=== PATIENT | female | born 1975 | race Caucasian/White ===

== ENCOUNTER 2022-05-20 07:49 | Emergency (ER) | payer MEDICAID, SELFPAY ==
[2022-05-20 07:56] VITALS: BP 114/71; PULSE 79; RESP 17; TEMP 36.7; O2SAT 97
--- NOTE | 2022-05-20 08:11 | ED.GENADUL_ITS ---
Discharge Plan Disposition Patient Disposition: HOME Condition: Stable Discharge Details Chief Complaint: Orthopedic Clinical Impression: Right knee sprain Primary Care Provider: Tammi,Local ED Provider: Sonam Olmedo Home Meds and New Rx's Prescriptions: No Action No Known Home Meds Discharge Instructions Instructions: Knee Sprain (ED) Additional Instructions: Rest, ice, and elevate the affected area as much as possible. Take Tylenol as needed and directed for pain. Follow-up with your primary care doctor for reevaluation and with orthopedics if your symptoms do not improve or worsen. Return immediately to the emergency department if you develop any worsening or new concerning symptoms. Referrals: Rj Aden MD [ [facility] STAFF PHYSICIAN] - Discharge Data Discharge Physician: Sonam Olmedo Medical Decision Making 47-year-old female who is 28 weeks presents with right knee pain after twisting injury when fell down 2 stairs this morning. Denies any other injuries. She has reproducible pain in her right medial and posterior knee with valgus stress and flexion and extension. There is no obvious edema or deformity. She has neurovascular intact. There is no significant pain in her right hip or ankle palpation or range of motion. We will give a dose of Tylenol refer for right knee x-ray. Right knee x-ray unremarkable. Discussed with patient that her symptoms could be consistent with a right knee sprain but also consider ligament injury. A hinged knee brace was placed and she was given crutches. Patient recently moved here from [place] but has been followed by [facility] for her . She is requesting referral to women's wellness. Patient placed on care management first to establish care with OB and for follow-up with orthopedics. Usual and customary return precautions given prior to discharge. Medical Records Medical records reviewed: Yes I reviewed the patient's medical records. Imaging Data Radiologic Study: Radiologist's impression: XR KNEE RT 3V AP,LAT,LIZZETTE CLINICAL HISTORY: ? R knee pain s/p twisting, r/o acute injury. ? TECHNIQUE:? 2D digital imaging was performed. COMPARISON:? No exams were available for comparison FINDINGS: 3 views No evidence of fracture or prominent joint effusion.? Bone density is normal.? No degenerative changes in the knee joint.? No osteochondral defects.? No significant osseous lesions. IMPRESSION: No significant osseous findings.? Also no prominent joint effusion. HPI [facility] Date/Time Provider Initiated Documentation: 05/20/22 08:08 . Limitations to Documentation: no limitations . Information obtained by: patient . HPI Narrative: Patient is a 47-year-old female who is 28 weeks presents for right knee pain after fall down 2 steps this morning. Patient states that she tripped and twisted her right knee after fall down 2 steps. She did not hit her head or abdomen. She has not taken any medication for pain. She denies any direct injury to her knee but states it twisted back behind her. She is complaining of pain mostly in the right medial and posterior knee. She denies any significant pain in any other area. Related Data Home Medications Medication Instructions Recorded Confirmed Unknown [No Known Home Meds] 05/20/22 05/20/22 Allergies Allergy/AdvReac Type Severity Reaction Status Date / Time aspirin Allergy Severe Anaphylaxis Unverified 05/20/22 08:00 lamotrigine [From Lamictal] Allergy Severe Other (See Unverified 05/20/22 08:00 Comment) General Stated Complaint: Orthopedic LAKE: 4 Review of Systems All systems reviewed & are unremarkable except as noted in HPI and below Constitutional Constitutional: Reports as per HPI, Denies chills and Denies fever(s) Eyes Eyes: Denies blurry vision ENT Ears, Nose, Mouth, and Throat: Denies dizziness, Denies sore throat and Denies throat swelling Cardiovascular Cardiovascular: Denies chest pain and Denies dyspnea Respiratory Respiratory: Denies cough and Denies dyspnea Gastrointestinal Gastrointestinal: Denies abdominal pain, Denies diarrhea and Denies vomiting Genitourinary Genitourinary: Denies hematuria and Denies dysuria Musculoskeletal Musculoskeletal: Denies back pain and Denies numbness Comments: R knee pain Integumentary/Breasts Skin/Breast: Denies lesions and Denies rash Neurologic Neurologic: Denies dizziness, Denies localized weakness and Denies numbness Allergic/Immunologic Allergic/Immunologic: Denies throat swelling PFSH All Active Problems (Updated 05/20/22 @ 10:46 by Sonam Olmedo DO) Right knee sprain (Acute) Medical History (Updated 05/20/22 @ 10:46 by Sonam Olmedo DO) No significant past medical history Surgical History (Updated 05/20/22 @ 09:22 by BERNIE Duarte H/O section Social History Smoking/Tobacco Use Status: Never Smoking risk assessment performed?: Yes Alcohol Intake: never Drug use: Never Substance use type: does not use Do you feel safe at home: Yes Do you feel safe in your relationship?: Yes Exam Const General: cooperative, healthy appearing and no acute distress HENMT Head: normal to inspection Mouth: oral mucosae normal Eyes General: appearance normal, both eyes and all related structures Neck Neck: normal visual inspection Resp Effort & Inspection: normal respiratory effort and able to speak in complete sentences Cardio Rate: regular rate Skin General skin exam: no rashes or lesions noted Neuro General: patient alert, patient awake and patient oriented x3 Motor: muscle tone normal throughout Extrem Other: Pain in the right medial knee with valgus stress. There is significant pain and right medial and posterior knee with flexion/extension of the knee. There is no obvious ligamentous laxity. There is no pain with varus stress. Negative anterior and posterior drawer. Difficulty performing Jaz's test due to pain. There is no significant edema, ecchymosis or deformity. Right DP/PT pul ses intact. Able to flex at right hip without significant pain. Right ankle appears normal to inspection without edema, ecchymosis or significant tenderness to palpation or deformity. Psych Appearance: grossly normal Affect: normal affect Course Vital Signs Vital signs: Vital Signs Temperature 98.1 F 05/20/22 07:56 Pulse 79 05/20/22 07:56 Respiratory Rate 17 05/20/22 07:56 Blood Pressure 114/71 05/20/22 07:56 Pulse Oximetry 97 05/20/22 07:56 Temperature 98.1 F 05/20/22 07:56 Temperature Source Tympanic 05/20/22 07:56 Pulse 79 05/20/22 07:56 Respiratory Rate 17 05/20/22 07:56 Respiratory Effort Non-Labored 05/20/22 07:58 Blood Pressure 114/71 05/20/22 07:56 Blood Pressure Position Sitting 05/20/22 07:56 Pulse Oximetry 97 05/20/22 07:56 Oxygen Delivery Method Room Air 05/20/22 07:56 Oxygen Flow Rate 0 05/20/22 07:56 Pain Level 7 05/20/22 08:00
[2022-05-20] MEDS: Acetaminophen 325 MG TAB 650 MG PO (08:39)
--- NOTE | 2022-05-20 09:34 | DI.RAD_ITS ---
Exam(s) XR KNEE RT 3V AP,LAT,LIZZETTE EXAM: XR KNEE RT 3V AP,LAT,LIZZETTE CLINICAL HISTORY: R knee pain s/p twisting, r/o acute injury. TECHNIQUE: 2D digital imaging was performed. COMPARISON: No exams were available for comparison FINDINGS: 3 views No evidence of fracture or prominent joint effusion. Bone density is normal. No degenerative change s in the knee joint. No osteochondral defects. No significant osseous lesions. IMPRESSION: No significant osseous findings. Also no prominent joint effusion. DATA REPOSITORY: RADIATION DOSE DELIVERED:
--- NOTE | 2022-05-20 10:46 | NUR.NOTE ---
Nursing Note: PT info given to care management for follow up to establish care & [facility] Joana, ED
--- NOTE | 2022-05-21 10:36 | NUR.NOTE ---
Nursing Note: Accessed pt chart for [facility].
--- NOTE | 2022-05-22 09:09 | PDOC.ERCMACT ---
- If Service Date Differs Date of service: 05/22/22 Time of Service: 09:09 Care Management Activity Note Shandra presents in the ED for a right knee sprain. At the request of ED provider, CM coordinates a referral to Bridget Alvarado MD, of [facility], on-call provider, to assist Shandra in obtaining a follow up appointment and in establishing care with a local PCP. A referral is also made to [facility] as Shandra is . She has [place] Medicaid for insurance.
== END 2022-05-20 10:58 | disposition home or self-care (01) ==
PROVIDERS: Emergency Provider Physician Assistant
DX: S83.8X1A Sprain of other specified parts of right knee, initial encounter (principal); W10.8XXA Fall (on) (from) other stairs and steps, initial encounter; O26.893 Other specified pregnancy related conditions, third trimester; Z3A.28 28 weeks gestation of pregnancy
CPT/HCPCS: 29505; 73562; 99283

== ENCOUNTER 2022-06-11 19:16 | Outpatient (CLI) | payer MEDICAID, SELFPAY ==
[2022-06-11 20:16] VITALS: BP 121/78; PULSE 81
[2022-06-11 20:19] VITALS: BP 121/78; PULSE 81
--- NOTE | 2022-06-11 21:11 | PDOC.NST_ITS ---
Date of service: 06/11/22 Time of Service: 21:11 NST Evaluation Reason for NST Reasons for Nonstress Test: ADVANCED MATERNAL AGE Reason for NST Other: cramping and diarrhea Gestational Age Gestational Age in Weeks and Days: 30 Weeks and 6Days Test and Monitor Explained Test/Monitor Explained: Test Explained, Monitor Explained and Patient Verbalized Understanding Vital Signs Blood Pressure: 121/78 Pulse: 81 Urine Results Urine Protein: Negative (trace) Urine Ketones: Positive (large) Urine Glucose: Negative Urine Blood: Negative NST Information Date on Monitor: 06/11/22 Time on Monitor: 20:06 Date off Monitor: 06/11/22 Time off Monitor: 21:30 Total Time on Monitor: 84 NST Interventions: PO Hydration Contraction Frequency: irregular, mild, diminished with PO hydration and food Comments: urine sp. gr. 1.025 NST Evaluation Patient States Movement: Present FHR Baseline: 125 Variability: Moderate 6-25 bpm Accelerations: 15x15 and Prolonged Decelerations: None NST Results: Reactive Note NST Note Note: Cvx closed/thick, firm, posterior Cephalus presenting, ballotable Intact membranes; vaginal mucous appears white, slightly clumpy Pt given crackers & PB to address ketones and prefers water for PO hydration VPS and UC&S sent Appt in 2 days with CNM in [facility] NST Reviewed and Verified by: Sudha Fuentes
[2022-06-11 21:19] VITALS: BP 121/78; PULSE 81
== END 2022-06-11 22:28 | disposition home or self-care (01) ==
LOC: BCD 19:27 → OBS 20:05
PROVIDERS: Visit Provider Advanced Practice Midwife
DX: O09.523 Supervision of elderly multigravida, third trimester (principal); Z3A.30 30 weeks gestation of pregnancy; O26.893 Other specified pregnancy related conditions, third trimester; R19.7 Diarrhea, unspecified; R25.2 Cramp and spasm
CPT/HCPCS: 59025; 87086; 87480; 87510; 87660

== ENCOUNTER → 2022-06-15 02:33 | Outpatient (CLI) | payer MEDICAID, SELFPAY ==
--- NOTE | 2022-06-15 08:00 | DI.US_ITS ---
Exam(s) US OB PAT WEIGHT EXAM: US OB PAT WEIGHT CLINICAL HISTORY: growth, fluid, O09.30 TECHNIQUE: Ultrasound performed using standard protocol. COMPARISON: No exams were available for comparison FINDINGS: Ob ultrasound was performed utilizing 3rd trimester protocol. biometry is consistent with gestational age of 34 weeks 0 days with EDC of July 27. The e stimated weight is 2304 grams which is at the 97th percentile for predicted gestational age. Placenta is anterior with no placenta previa. There is visually a normal quantity of amniotic fluid and the PAT is 18. IMPRESSION: DATA REPOSITORY:
== END ==
PROVIDERS: PCP Family Medicine; Visit Provider Advanced Practice Midwife
DX: O09.33 Supervision of pregnancy with insufficient antenatal care, third trimester (principal); Z3A.34 34 weeks gestation of pregnancy
CPT/HCPCS: 76816

== ENCOUNTER 2022-06-23 02:50 | Outpatient (CLI) | payer MEDICAID, SELFPAY ==
[2022-06-23 12:53] LABS: Glucose,1 Hr (Glucola) 99 mg/dL (80-140)
[2022-06-23 13:56] LABS: ALT 10 U/L (14-59); AST 10 U/L (15-37); Albumin 3.1 g/dL (3.4-5.0); Alkaline Phosphatase 102 U/L (46-116); Anion Gap 9.3 mmol/L (3-11); BUN 6 mg/dL (7-18); Bilirubin, Total 0.2 mg/dL (0.2-1.0); CO2 23.7 mmol/L (21.0-32.0); CREATININE 0.5 mg/dL (0.55-1.02); Calcium 8.6 mg/dL (8.5-10.1); Chloride 103 mmol/L (98-107); Glucose 99 mg/dL (74-106); Sodium 136 mmol/L (136-145); Total Protein 6.5 g/dL (6.4-8.2)
[2022-06-24 10:27] LABS: HSV Type 1 Ab, IgG Positive (Negative); HSV Type 2 Ab, IgG Positive (Negative)
[2022-06-25 14:50] LABS: Syphilis IgG w/Reflex Nonreactive (Nonreactive)
== END 2022-06-23 02:51 | disposition home or self-care (01) ==
LOC: LBO 02:50
PROVIDERS: Advanced Practice Midwife; PCP Family Medicine; Visit Provider Advanced Practice Midwife
DX: O09.523 Supervision of elderly multigravida, third trimester (principal); Z86.19 Personal history of other infectious and parasitic diseases; F10.21 Alcohol dependence, in remission; O09.33 Supervision of pregnancy with insufficient antenatal care, third trimester
CPT/HCPCS: 36415; 80053; 82950; 86850; 86900; 86901; 86695; 86696; 86780

== ENCOUNTER 2022-06-23 15:20 | Outpatient (REF) | payer MEDICAID, SELFPAY ==
[2022-06-23 15:48] LABS: *AMPHETAMINES SCREEN URINE Negative (Negative); *BARBITURATES SCREEN URINE Negative (Negative); *BENZODIAZEPINES SCREEN URINE Negative (Negative); Cannabinoids THC Negative (Negative); Cocaine Screen,Urine Negative (Negative); METHADONE URINE SCREEN Negative (Negative); OPIATES URINE SCREEN Negative (Negative)
[2022-06-23 15:50] LABS: Tricyclic Antidepressants Negative (Negative)
[2022-07-06 14:44] LABS: Buprenorphine Negative ng/mL (Cutoff: 5.0); Norbuprenorphine Negative ng/mL (Cutoff: 2.5)
== END 2022-06-23 15:21 | disposition home or self-care (01) ==
LOC: LBN 15:20
PROVIDERS: PCP Family Medicine; Visit Provider Advanced Practice Midwife
DX: Z34.91 Encounter for supervision of normal pregnancy, unspecified, first trimester (principal)
CPT/HCPCS: 80307; 80348

== ENCOUNTER 2022-07-15 15:16 | Outpatient (CLI) | payer MEDICAID, SELFPAY ==
[2022-07-15 15:24] VITALS: BP 131/84; PULSE 80
[2022-07-15 15:38] VITALS: BP 131/84; PULSE 80; TEMP 36.6
[2022-07-15] MEDS: Lactated Ringers 1,000 ML 1000 ML IV (17:39)
[2022-07-15 18:04] LABS: Bilirubin Negative (Negative); Blood Trace-intact (Negative); Clarity Cloudy (Clear); Glucose Negative (Negative); Ketones Negative (Negative); Leukocyte Esterase Negative (Negative); Nitrite Negative (Negative); Specific Gravity 1.025 (1.005-1.025)
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
--- NOTE | 2022-07-15 18:28 | W.OBNST ---
Date of service: 07/15/22 Time of Service: 18:28 NST Evaluation Reason for NST Reasons for Nonstress Test: OTHER, SEE COMMENT Reason for NST Other: r/o labor Gestational Age Gestational Age in Weeks and Days: 35 Weeks and 5Days Test and Monitor Explained Test/Monitor Explained: Test Explained, Monitor Explained and Patient Verbalized Understanding Vital Signs Blood Pressure: 131/84 Pulse: 80 Temperature: 97.9 F NST Information Date on Monitor: 07/15/22 Time on Monitor: 15:15 Contraction Frequency: q3 at most frequent then spaced out after IVF NST Evaluation Patient States Movement: Present FHR Baseline: 135 Variability: Moderate 6-25 bpm Accelerations: 15x15 Decelerations: None NST Results: Reactive Note NST Note NST Reviewed and Verified by: Deana Reddy
[2022-07-15 18:29] VITALS: BP 131/84; PULSE 80; TEMP 36.6
== END 2022-07-15 18:45 | disposition home or self-care (01) ==
LOC: OBS 16:19 → BCD 07-18 12:51 → OBS 07-18 12:52
PROVIDERS: PCP Family Medicine; Visit Provider Obstetrics & Gynecology
DX: O47.03 False labor before 37 completed weeks of gestation, third trimester (principal); Z3A.35 35 weeks gestation of pregnancy; O34.13 Maternal care for benign tumor of corpus uteri, third trimester; O99.343 Other mental disorders complicating pregnancy, third trimester; F32.A Depression, unspecified
CPT/HCPCS: 59025; 81003; G0378

== ENCOUNTER 2022-07-22 13:28 | Outpatient (REF) | payer MEDICAID, SELFPAY | END 2022-07-22 13:29 | disposition home or self-care (01) | LOC: LBN 13:28 | PROVIDERS: PCP Family Medicine; Visit Provider Obstetrics & Gynecology Gynecology | DX: Z34.93 Encounter for supervision of normal pregnancy, unspecified, third trimester (principal) | CPT/HCPCS: 87081 ==

== ENCOUNTER 2022-07-26 07:13 | Outpatient (CLI) | payer MEDICAID, SELFPAY ==
[2022-07-26 10:49] VITALS: BP 126/74; PULSE 89; TEMP 36.6
[2022-07-26 10:52] VITALS: BP 126/74; PULSE 89
--- NOTE | 2022-07-26 12:02 | W.OBNST ---
Date of service: 07/26/22 Time of Service: 12:02 NST Evaluation Reason for NST Reasons for Nonstress Test: ADVANCED MATERNAL AGE Gestational Age Gestational Age in Weeks and Days: 37 Weeks and 2Days Test and Monitor Explained Test/Monitor Explained: Test Explained, Monitor Explained and Patient Verbalized Understanding Vital Signs Blood Pressure: 126/74 Pulse: 89 Temperature: 97.9 F NST Information Date on Monitor: 07/26/22 Time on Monitor: 10:50 Date off Monitor: 07/26/22 Time off Monitor: 11:16 Total Time on Monitor: 26 NST Interventions: PO Hydration Contraction Frequency: 8-8-mgawgrmra NST Evaluation Patient States Movement: Present FHR Baseline: 140 Variability: Moderate 6-25 bpm Accelerations: 15x15 and Prolonged Decelerations: None NST Results: Reactive Note N/A NST Note Note: Reactive, category 1 nonstress test NST Reviewed and Verified by: Sonia Lamas
[2022-07-26 12:03] VITALS: BP 126/74; PULSE 89; TEMP 36.6
== END 2022-07-26 11:24 | disposition home or self-care (01) ==
LOC: BCD 07:17 → OBS 10:48
PROVIDERS: PCP Family Medicine; Visit Provider Obstetrics & Gynecology
DX: O09.523 Supervision of elderly multigravida, third trimester (principal); Z3A.37 37 weeks gestation of pregnancy
CPT/HCPCS: 59025

== ENCOUNTER 2022-07-29 11:35 | Outpatient (CLI) | payer MEDICAID, SELFPAY ==
[2022-07-29 12:58] VITALS: BP 123/72; PULSE 80; TEMP 36.7
== END 2022-07-29 13:37 | disposition home or self-care (01) ==
LOC: BCD 11:36 → OBS 12:57
PROVIDERS: PCP Family Medicine; Visit Provider Obstetrics & Gynecology
DX: O09.523 Supervision of elderly multigravida, third trimester (principal)
CPT/HCPCS: 59025

== ENCOUNTER 2022-08-02 07:40 | Outpatient (CLI) | payer MEDICAID, SELFPAY ==
[2022-08-02 11:00] VITALS: BP 128/85; PULSE 88; TEMP 36.9
[2022-08-02 11:07] VITALS: BP 128/85; PULSE 88
[2022-08-03 16:03] VITALS: BP 128/85; PULSE 88; TEMP 36.9
--- NOTE | 2022-08-03 16:03 | W.OBNST ---
Date of service: 08/03/22 Time of Service: 11:30 NST Evaluation Reason for NST Reasons for Nonstress Test: ADVANCED MATERNAL AGE Gestational Age Gestational Age in Weeks and Days: 38 Weeks and 2Days Test and Monitor Explained Test/Monitor Explained: Test Explained, Monitor Explained and Patient Verbalized Understanding Vital Signs Blood Pressure: 128/85 Pulse: 88 Temperature: 98.4 F Urine Results Urine Protein: Negative Urine Ketones: Negative Urine Glucose: Negative Urine Blood: Negative NST Information Date on Monitor: 08/02/22 Time on Monitor: 11:04 Date off Monitor: 08/02/22 Time off Monitor: 11:40 Total Time on Monitor: 36 NST Interventions: PO Hydration Contraction Frequency: irritablity, contraction x 1 NST Evaluation Patient States Movement: Present FHR Baseline: 135 Variability: Moderate 6-25 bpm Accelerations: 15x15 Decelerations: None NST Results: Reactive Note N/A NST Note NST Reviewed and Verified by: Deana Reddy
== END 2022-08-02 11:48 | disposition home or self-care (01) ==
LOC: BCD 07:40 → OBS 10:38
PROVIDERS: PCP Family Medicine; Visit Provider Obstetrics & Gynecology
DX: O09.523 Supervision of elderly multigravida, third trimester (principal); Z3A.38 38 weeks gestation of pregnancy
CPT/HCPCS: 59025

== ENCOUNTER 2022-08-05 08:07 | Outpatient (CLI) | payer MEDICAID, SELFPAY ==
[2022-08-05 11:13] VITALS: BP 110/76; PULSE 90; TEMP 36.7
[2022-08-05 11:18] VITALS: BP 110/76; PULSE 90
--- NOTE | 2022-08-05 17:11 | W.OBNST ---
Date of service: 08/05/22 Time of Service: 11:30 NST Evaluation Reason for NST Reasons for Nonstress Test: ADVANCED MATERNAL AGE Gestational Age Gestational Age in Weeks and Days: 38 Weeks and 5Days Test and Monitor Explained Test/Monitor Explained: Test Explained, Monitor Explained and Patient Verbalized Understanding Vital Signs Blood Pressure: 110/76 Pulse: 90 Temperature: 98.1 F NST Information Date on Monitor: 08/05/22 Time on Monitor: 11:14 Date off Monitor: 08/05/22 Time off Monitor: 12:05 Total Time on Monitor: 51 NST Interventions: PO Hydration Contraction Frequency: 0 NST Evaluation Patient States Movement: Present FHR Baseline: 130 Variability: Moderate 6-25 bpm Accelerations: 15x15 Decelerations: None NST Results: Reactive Note N/A NST Note Note: See visit. CS next week. NST Reviewed and Verified by: Deana Reddy
[2022-08-05 17:12] VITALS: BP 110/76; PULSE 90; TEMP 36.7
== END 2022-08-05 12:14 | disposition home or self-care (01) ==
LOC: BCD 08:15 → OBS 10:51
PROVIDERS: PCP Family Medicine; Visit Provider Obstetrics & Gynecology
DX: O09.523 Supervision of elderly multigravida, third trimester (principal); Z3A.38 38 weeks gestation of pregnancy
CPT/HCPCS: 59025

== ENCOUNTER 2022-08-09 03:18 | Outpatient (CLI) | payer MEDICAID, SELFPAY ==
[2022-08-09 10:50] LABS: Abs Immature Grans 0.03 10^3/uL (0.0-0.06); Absolute Basophil Count 0.02 10^3/uL (0.0-0.2); Absolute Eosinophil Count 0.17 10^3/uL (0.0-0.7); Absolute Lymphocyte Count 1.58 10^3/uL (1.2-3.4); Absolute Monocyte Count 0.41 10^3/uL (0.1-0.8); Absolute Neutrophil Count 5.31 10^3/uL (1.2-6.7); Basophils % 0.3; Eosinophils % 2.3; HCT 34.2 % (36.0-46.0); HGB 11.6 g/dL (11.2-15.7); Immature Grans % 0.4; MCH 30.9 pg (27.0-33.0); MCHC 33.9 % (32.0-36.0); MCV 91 fL (80-95); MPV 9.7 fL (8.0-11.0); Monocytes % 5.5; Neutrophils % 70.5; Platelet Count 277 10^3/uL (130-400); RBC 3.76 10^6/uL (3.93-5.22); RDW 13.1 % (11.7-14.6); RDW-SD 43.5 fL; WBC 7.52 10^3/uL (4.4-10.8)
[2022-08-09 12:47] LABS: Source Nasal/Nares
[2022-08-09 13:21] LABS: COVID-19 PCR Negative (Negative)
== END 2022-08-09 03:19 | disposition home or self-care (01) ==
LOC: LBO 03:18
PROVIDERS: PCP Family Medicine; Visit Provider Obstetrics & Gynecology
DX: Z01.818 Encounter for other preprocedural examination (principal); Z20.822 Contact with and (suspected) exposure to COVID-19; O34.219 Maternal care for unspecified type scar from previous cesarean delivery; Z3A.39 39 weeks gestation of pregnancy; Z01.812 Encounter for preprocedural laboratory examination
CPT/HCPCS: 36415; 86850; 86900; 86901; 87635; 85025

== ENCOUNTER 2022-08-10 10:34 | Inpatient (IN) | payer MEDICAID, SELFPAY ==
[2022-08-10] VITALS (66 sets, daily range): BP systolic 99–126; BP diastolic 60–86; PULSE 60–96; RESP 16–65; TEMP 36.3–37.1; O2SAT 96–100; BMI 31.1
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
[2022-08-10] MEDS: AZITHROMYCIN 500 MG in Normal Saline 250 ML 250 MG IVPB (07:11)
[2022-08-10] MEDS: Lactated Ringers 1,000 ML 200 ML IV (07:15)
[2022-08-10] MEDS: Sodium Citrate 30 ML CUP PO (07:20)
[2022-08-10] MEDS: ceFAZolin 2 GM/50 ML BAG IVPB (07:51)
[2022-08-10] MEDS: Bupivacaine 0.25% Pres-Free 30 ML VIAL (08:00)
--- NOTE | 2022-08-10 08:26 | FALL_PTH ---
PATIENT: Shandra Chopra LOC: OBS U#:[id number] AGE/SX: 47/F ROOM: OBS.301 RE08/10/[address]: Sonia Lamas DO : 1975 BED: A DIS: 08/13/2022 SPEC #: [id number] RECD: 08/10/22 12:52 STATUS: DOMINIQUE REQ #: [id number] ROGER: 08/10/22 08:[address]: Sonia Lamas DEPT: Surgical Specimen RECD BY: Kenzie Tirado ENTERED: 08/10/22 12:52 SP TYPE: Fall OTHR DR: Makeda Dubois Tissues: 1 - FALLOPIAN TUBE (STERILIZATION) 2 - FALLOPIAN TUBE (STERILIZATION) Procedures: GROSS AND MICRO LEVEL 2 Comments: [id number]
[2022-08-10] MEDS: Oxytocin/Normal Saline 30 UNIT/500 ML BAG 95 UNITS IV (08:40)
--- NOTE | 2022-08-10 08:58 | W.PM.OBCSECT ---
Date of service: 08/10/22 Time of Service: 08:58 Operative Note Operative Note Delivery Method: Scheduled and Repeat Previous LT Incision: Yes DATE OF PROCEDURE: 08/10/22 PRE-OP DIAGNOSES: at 39-3/7 weeks gestation, undesired fertility POST-OP DIAGNOSES: same PROCEDURE: Repeat low-transverse section with bilateral salpingectomy SURGEON: Sonia Lamas Assisting Surgeon: Shante Kaur Anesthesia: local and spinal Estimated blood loss (mL): 500 Pathology: other (1. Left fallopian tube 2. Right fallopian tube) Complications: None Patient was transported to: floor Patient's condition: stable Indications: Prior section x2, term intrauterine , undesired fertility Findings: Bulky enlarged uterus with posterior uterine fibroid. Moderate adhesions of the bladder to the lower uterine segment. Normal-appearing fallopian tubes and ovaries Procedure Description: After full informed consent was obtained, patient was taken the operating suite with an IV running. She is placed in the seated position and spinal anesthesia administered for postoperative pain control. She was then placed in the modified dorsolithotomy position with leftward tilt and prepped and draped in the usual sterile fashion including vaginal preparation. She received Ancef and Zithromax for surgical site infection prophylaxis. She had pneumatic compression stockings for DVT prophylaxis. She had a Montes catheter for continuous bladder drainage. Pfannenstiel skin incision was made through her previous surgical incision and carried down to the underlying fascia which was nicked in the midline. The fascial incision was extended laterally. The rectus muscles had a diastases and the peritoneal cavity was entered with meticulous sharp dissection. The vesicouterine peritoneum was identified and meticulously dissected away from the lower uterine segment and bladder blade was inserted. A low transverse uterine incision was made with a scalpel and extended bluntly laterally. There was artificial rupture of membranes for clear fluid at the vertex was delivered without trauma. There was a nuchal cord x1 which was loose and delivered through. Shoulders followed with ease. Three-vessel cord was noted clamped x2 and cut and the was handed off to the waiting oil exploration engineer. At this point cord blood sample was obtained and placenta was manually expressed from the uterus. The uterus was then exteriorized and cleared of all clot and debris. The uterine incision was closed using 0 Monocryl suture in a 2 layer fashion with the first being running locked and second being imbricating. Uterine incision was noted to be hemostatic. At this point attention was turned to the left fallopian tube which was cautery transected and removed and a similar procedure was carried out then on the right fallopian tube. The pedicles were noted to be hemostatic and the uterus was returned to the abdomen. Abdomen was then irrigated with copious months of normal saline all pedicles and incision was then reinspected and found to be hemostatic. The fascial incision was closed using 0 Vicryl suture in a running fashion. Subcutaneous tissue irrigated with copious months of normal saline and reapproximated with 3-0 Vicryl in a simple interrupted fashion. The incision was then closed using 4-0 undyed Monocryl in a subcuticular fashion. Steri-Strips and sterile dressing were placed. Patient was taken to the center in stable condition with a Montes catheter draining clear yellow urine in the uterus that was firm, 2 cm below the umbilicus. Complications: None apparent EBL: 500 mL Fluids: Crystalloid per anesthesia Pathology: 1. Left fallopian tube 2. Right fallopian tube.
[2022-08-10] MEDS: Ketorolac 30 MG/ML VIAL IVP ×2 (14:05→20:09)
[2022-08-10] MEDS: Normal Saline Flush 10 ML SYR IVP ×2 (14:06→20:12)
[2022-08-10] MEDS: Acetaminophen 325 MG TAB 650 MG PO (16:43)
--- NOTE | 2022-08-10 17:40 | W.ANESPOSTOP ---
Postoperative Evaluation Date, Time and Location Date Performed: 08/10/22 Time Performed: 17:40 Patient Location: Obstetrics Vital Signs Most Recent Imported Vital Signs: Most Recent Vital Signs Temp Pulse Resp BP Pulse Ox 36.7 C 71 16 106/62 96 08/10/22 16:30 08/10/22 16:36 08/10/22 16:30 08/10/22 16:36 08/10/22 16:35 Pain Score Most Recent Pain Score: Most Recent Pain Score Pain Level 5 08/10/22 16:43 Assessment Mental Status: Awake (Alert & Oriented to Patient Baseline) Airway and Respiratory Function: Patent airway with normal (patient baseline) respiratory exam Cardiovascular Function: Hemodynamically Stable Hydration Status: Adequately Hydrated Nausea & Vomiting: No Nausea or Vomiting Pain: Pain is tolerable per patient Peripheral Nerve Block: Patient did not receive a nerve block (Spinal wearing off appropriately, some numbness remains in bottom)
[2022-08-11] MEDS: Acetaminophen 325 MG TAB 650 MG PO ×4 (00:06→20:01)
[2022-08-11 02:46] VITALS: BP 99/56; PULSE 61
[2022-08-11 02:57] VITALS: BP 93/68; PULSE 67; RESP 16; TEMP 36.4; O2SAT 97
[2022-08-11] MEDS: Ketorolac 30 MG/ML VIAL IVP ×2 (05:57→12:19)
[2022-08-11] MEDS: Normal Saline Flush 10 ML SYR IVP ×2 (05:58→12:20)
[2022-08-11 06:31] LABS: Abs Immature Grans 0.05 10^3/uL (0.0-0.06); Absolute Basophil Count 0.02 10^3/uL (0.0-0.2); Absolute Eosinophil Count 0.14 10^3/uL (0.0-0.7); Absolute Lymphocyte Count 2.44 10^3/uL (1.2-3.4); Absolute Monocyte Count 0.55 10^3/uL (0.1-0.8); Basophils % 0.2; Eosinophils % 1.3; HCT 31.2 % (36.0-46.0); HGB 10.5 g/dL (11.2-15.7); Immature Grans % 0.5; Lymphocytes % 22.1; MCHC 33.7 % (32.0-36.0); MCV 92 fL (80-95); MPV 9.9 fL (8.0-11.0); Neutrophils % 70.9; Platelet Count 253 10^3/uL (130-400); RBC 3.39 10^6/uL (3.93-5.22); RDW-SD 43.3 fL; WBC 11.04 10^3/uL (4.4-10.8)
[2022-08-11 06:34] LABS: Absolute Neutrophil Count 7.83 10^3/uL (1.2-6.7)
[2022-08-11 07:40] VITALS: BP 113/75; PULSE 75; RESP 14; TEMP 36.9; O2SAT 96
--- NOTE | 2022-08-11 08:18 | W.PM.OBPNV1 ---
Date of service: 08/11/22 Time of Service: 08:18 Assessment and Plan Assessment and plan (1) Status post repeat low transverse section: Status: Acute Assessment and plan: Postoperative day 1 status post repeat low transverse section with bilateral salpingectomy. Doing well. Slight headache this morning. Medications ordered. Continue routine postoperative care. Anticipate discharge home tomorrow. Subjective Subjective Interval history: Patient seen and examined this morning. Doing well. Has a slight headache which per her request has responded nicely to Flexeril in the past. 1 was ordered for the morning. She will have her Montes catheter out this morning. All of her questions were answered. Exam Physical Exam Vital signs: Temp Pulse Resp BP Pulse Ox 97.6 F 67 16 93/68 L 97 08/11/22 02:57 08/11/22 02:57 08/11/22 02:57 08/11/22 02:57 08/11/22 02:57 Vital Signs Reviewed: Yes Constitutional Constitutional: no acute distress HEENT Exam HEENT Exam: Normal Neck Exam Neck Exam: Normal Respiratory Exam Respiratory Exam: Normal Cardiovascular Exam Cardiovascular Exam: Normal Fundal Exam Fundus: Below Umbilicus and Firm Extremities Exam Extremity Exam: negative Calf Tenderness, Edema or Redness Psychiatric Exam Psychiatric Exam: Normal Results Hemoglobin/Hematocrit: Hgb 10.5 g/dL (11.2-15.7) L 08/11/22 06:21 Hct 31.2 % (36.0-46.0) L 08/11/22 06:21 Abnormal Lab Findings: Abnormal Labs 08/11/22 06:21 WBC 11.04 H RBC 3.39 L Hgb 10.5 L Hct 31.2 L Absolute Neutrophils 7.83 H
[2022-08-11] MEDS: Cyclobenzaprine 10 MG TAB PO ×2 (09:19→21:39)
[2022-08-11 12:30] VITALS: BP 112/62; PULSE 59; RESP 12; TEMP 36.9; O2SAT 96
[2022-08-11 15:50] VITALS: BP 110/78; PULSE 76; RESP 16; TEMP 36.4; O2SAT 99
[2022-08-11] MEDS: Ibuprofen 600 MG TAB PO (18:47)
[2022-08-11 19:00] VITALS: BP 119/75; PULSE 70; TEMP 36.4; O2SAT 95
[2022-08-12] MEDS: oxyCODONE 5 mg/Acetaminophen 325 mg TAB PO ×3 (00:52→08:20)
[2022-08-12] MEDS: Ibuprofen 600 MG TAB PO ×4 (00:53→18:38)
[2022-08-12 01:00] VITALS: BP 127/76; PULSE 85; TEMP 36.4
[2022-08-12] MEDS: Acetaminophen 325 MG TAB 650 MG PO ×4 (04:39→23:33)
[2022-08-12 04:54] VITALS: BP 126/75; PULSE 60; TEMP 36.4
[2022-08-12 07:15] VITALS: BP 116/75; PULSE 69; RESP 14; TEMP 36.6; O2SAT 96
--- NOTE | 2022-08-12 08:05 | OBPPV_ITS ---
Date of service: 08/12/22 Time of Service: 08:05 Assessment and Plan Assessment and plan (1) Status post repeat low transverse section: Status: Acute (2) H/O bilateral salpingectomy: Status: Acute Assessment and plan: Postop day 2. Breast-feeding well. Patient's pain is still not yet controlled. The plan at this time is to continue [id number] ibuprofen with 1-2 Percocet every 6 hours. We will reassess for discharge to home later today. Subjective Subjective Interval history: Postop day 2 from repeat low-transverse delivery with bilateral tubal sterilization. Breast-feeding successfully. Patient comments: Incisional pain, Tolerating diet, Flatus present and Other (Reports generalized pain not relieved with hydrocodone or Percocet dose during the night) Patient's Mood: Satisfactory. Patient does not feel that she is ready to go home this morning [place] baby status: Doing well, Nursing well, Rooming in and Strong Bonding Observed [place] feeding status: Exclusively breast feeding Narrative: Patient reports generalized abdominal pain with movement. Exam Physical Exam Vital signs: Temp Pulse Resp BP Pulse Ox 97.9 F 69 14 116/75 96 08/12/22 07:15 08/12/22 07:15 08/12/22 07:15 08/12/22 07:15 08/12/22 07:15 Vital Signs Reviewed: Yes Narrative: Stable. Voiding spontaneously Constitutional Constitutional: mild distress HEENT Exam HEENT Exam: Normal Neck Exam Neck Exam: Normal Respiratory Exam Respiratory Exam: Normal Cardiovascular Exam Cardiovascular Exam: Normal Abdominal Exam Abdomen: Diastasis and Tender Fundal Exam Fundus: Below Umbilicus Rectal Exam Rectal Exam: Not Done Extremities Exam Extremity Exam: Normal Back/Spine/Pelvis Exam Back Exam: Normal Skin Exam Skin Exam: Normal Neurological Exam Neurological Exam: Normal Psychiatric Exam Psychiatric Exam: Normal Results Hemoglobin/Hematocrit: Hgb 10.5 g/dL (11.2-15.7) L 08/11/22 06:21 Hct 31.2 % (36.0-46.0) L 08/11/22 06:21 Abnormal Lab Findings: Abnormal Labs 08/11/22 06:21 WBC 11.04 H RBC 3.39 L Hgb 10.5 L Hct 31.2 L Absolute Neutrophils 7.83 H
[2022-08-12 12:35] VITALS: BP 111/70; PULSE 69; RESP 12; TEMP 36.7
[2022-08-12] MEDS: oxyCODONE 5 MG TAB PO ×3 (12:38→23:37)
[2022-08-12] MEDS: Docusate Sodium 100 MG CAP PO (13:55)
[2022-08-12] MEDS: HYDROmorphone 2 MG TAB PO (15:21)
[2022-08-12 16:05] VITALS: BP 122/75; PULSE 71; RESP 16; TEMP 36.4
[2022-08-12 23:00] VITALS: BP 111/72; PULSE 90; RESP 18; TEMP 36.6
[2022-08-13] MEDS: Ibuprofen 600 MG TAB PO ×2 (00:53→10:42)
[2022-08-13] MEDS: HYDROmorphone 2 MG TAB PO (00:53)
[2022-08-13 02:05] VITALS: BP 140/100; PULSE 74; RESP 24
--- NOTE | 2022-08-13 02:17 | OBPPV_ITS ---
Date of service: 08/13/22 Time of Service: 02:17 Assessment and Plan Assessment and plan (1) Postoperative pain: Status: Acute Assessment and plan: Approximately 48 hours after her repeat delivery she developed pain in the distribution area of the left genitofemoral nerve in proximity to her Pfannenstiel skin incision. Successful nerve block was performed. We will continue to observe the patient's pain status. Subjective Subjective Interval history: Beginning later on the day and postop to patient experienced significant left greater than right lower quadrant pain in proximity to the lateral margins of her Pfannenstiel skin incision. The pain was described as sharp radiating down to her pubic symphysis and into the inguinal region. She was experiencing difficulty walking and position changes were almost impossible secondary to her discomfort. She experienced little relief from narcotics or NSAIDs. I was notified by the nursing staff that her pain had exacerbated approximately 1:00 in the morning on 08/13/2022. Patient comments: Incisional pain (Left lateral a Pfannenstiel skin incision tender to touch) and Flatus present Patient's Mood: Increasingly anxious regarding worsening pain. baby status: Doing well, Nursing well, Rooming in and Strong Bonding Observed feeding status: Exclusively breast feeding Exam Physical Exam Vital signs: Temp Pulse Resp BP Pulse Ox 98 F 90 18 111/72 96 08/12/22 23:00 08/12/22 23:00 08/12/22 23:00 08/12/22 23:00 08/12/22 07:15 Vital Signs Reviewed: Yes Narrative: Blood pressure immediately after the injection diastolic was in the 100 range. Pulse 74. Repeat blood pressure 15 minutes later 120/84 pulse 74. Constitutional Constitutional: severe distress (Patient sitting in Semi-Avalos's position in bed eyes closed unable to comfortably reposition herself) and cooperative HEENT Exam HEENT Exam: Normal Neck Exam Neck Exam: Normal Respiratory Exam Respiratory Exam: Normal Cardiovascular Exam Cardiovascular Exam: Normal Abdominal Exam Abdomen: Tender (Left lower quadrant 3 cm lateral to the margin of the Pfannenstiel skin incision) Comments: Pfannenstiel skin incision is intact without drainage small amount of ecchymosis present along the superior and inferior incision margins. Fundal Exam Fundus: Below Umbilicus Rectal Exam Rectal Exam: Not Done Extremities Exam Extremity Exam: Normal Back/Spine/Pelvis Exam Back Exam: Normal Skin Exam Skin Exam: Normal Neurological Exam Neurological Exam: Normal Psychiatric Exam Psychiatric Exam: Normal Results Hemoglobin/Hematocrit: Hgb 10.5 g/dL (11.2-15.7) L 08/11/22 06:21 Hct 31.2 % (36.0-46.0) L 08/11/22 06:21 Abnormal Lab Findings: Abnormal Labs 08/11/22 06:21 WBC 11.04 H RBC 3.39 L Hgb 10.5 L Hct 31.2 L Absolute Neutrophils 7.83 H Procedure Procedures: Other Procedure Note Date of procedure: 08/13/22 Procedure: Nerve block of the left general femoral nerve in proximity to Fenistil skin Surgeon/Proceduralist/Physician: Shante Kaur Procedure Diagnosis: Genitofemoral nerve pain Procedure Indications: Patient is postop day 3 from a repeat delivery who developed left lower quadrant pain in proximity to her left lateral margin of first Pfannenstiel skin incision. The area of distribution of her pain was in keeping with the general femoral nerve. There is no relief from narcotics or nonsteroidal anti- inflammatories Procedure Description: After verbal consent was obtained the patient was placed in the dorsal supine position and site of most focal pain in the general distribution of the left genitofemoral nerve was located approximately 4 cm lateral to the left margin of the Pfannenstiel skin incision. A solution of 10 cc of quarter percent Marcaine without epinephrine and a total of 40 mg of Kenalog were mixed together in a syringe and a 22-gauge needle was then injected in a subcutaneous fashion to 2.2 identified pain and in a circumferential or fashion the solution was distributed and 5 cm radius. Patient tolerated the procedure well at the completion of the procedure she reported that the area of injection felt numb but she was not experiencing any further pain.
[2022-08-13 02:30] VITALS: BP 124/83; PULSE 74; RESP 18
[2022-08-13] MEDS: Acetaminophen 325 MG TAB 650 MG PO (06:34)
[2022-08-13] MEDS: oxyCODONE 5 MG TAB PO ×2 (06:35→10:42)
[2022-08-13] MEDS: Docusate Sodium 100 MG CAP PO (07:13)
[2022-08-13 07:34] VITALS: BP 129/88; PULSE 76; RESP 18; TEMP 36.7; O2SAT 98
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
[2022-08-13 10:49] VITALS: BP 123/88; PULSE 82; RESP 18; TEMP 36.5; O2SAT 98
== END 2022-08-13 11:45 | disposition home or self-care (01) | DRG 784 ==
PROVIDERS: Obstetrics & Gynecology Gynecology; Admitting Provider Obstetrics & Gynecology; PCP Family Medicine; Visit Provider Obstetrics & Gynecology
PROC: 10D00Z1 Extraction of Products of Conception, Low, Open Approach (ICD-10-PCS; CPT 59514; principal; 2022-08-10 07:30)
DX: O34.211 Maternal care for low transverse scar from previous cesarean delivery (principal); O99.354 Diseases of the nervous system complicating childbirth; Z37.0 Single live birth; Z3A.39 39 weeks gestation of pregnancy; G89.18 Other acute postprocedural pain; G58.8 Other specified mononeuropathies; O34.13 Maternal care for benign tumor of corpus uteri, third trimester; D25.9 Leiomyoma of uterus, unspecified; O99.344 Other mental disorders complicating childbirth; F32.A Depression, unspecified; O99.314 Alcohol use complicating childbirth; F10.21 Alcohol dependence, in remission; O99.284 Endocrine, nutritional and metabolic diseases complicating childbirth; E07.89 Other specified disorders of thyroid; Z30.2 Encounter for sterilization; G43.109 Migraine with aura, not intractable, without status migrainosus
CPT/HCPCS: 59514; 58700; 64450; 36415; 85025; 88302; J0131; J0456; J0690; J1100; J1885; J2370; J2405; J3010

== ENCOUNTER 2022-08-13 20:48 | Emergency (ER) | payer MEDICAID, SELFPAY ==
[2022-08-13 20:54] VITALS: BP 134/83; PULSE 70; RESP 18; TEMP 36.6; O2SAT 98
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
[2022-08-13 21:49] LABS: Lactate 1.3 mmol/L (0.6-1.4)
[2022-08-13 21:50] LABS: Abs Immature Grans 0.02 10^3/uL (0.0-0.06); Absolute Basophil Count 0.02 10^3/uL (0.0-0.2); Absolute Eosinophil Count 0.15 10^3/uL (0.0-0.7); Absolute Lymphocyte Count 1.29 10^3/uL (1.2-3.4); Absolute Monocyte Count 0.29 10^3/uL (0.1-0.8); Absolute Neutrophil Count 4.46 10^3/uL (1.2-6.7); Basophils % 0.3; Eosinophils % 2.4; HCT 31.6 % (36.0-46.0); HGB 10.5 g/dL (11.2-15.7); Immature Grans % 0.3; Lymphocytes % 20.7; MCH 30.6 pg (27.0-33.0); MCHC 33.2 % (32.0-36.0); MCV 92 fL (80-95); MPV 9.6 fL (8.0-11.0); Monocytes % 4.7; Neutrophils % 71.6; Platelet Count 307 10^3/uL (130-400); RBC 3.43 10^6/uL (3.93-5.22); RDW-SD 43.7 fL; WBC 6.23 10^3/uL (4.4-10.8)
[2022-08-13] MEDS: Normal Saline 1,000 ML 1000 ML IV (21:56)
[2022-08-13] MEDS: MORPHine 4 MG/ML SYR IVP (21:57)
[2022-08-13 22:04] LABS: ALT 13 U/L (14-59); AST 15 U/L (15-37); Albumin 2.6 g/dL (3.4-5.0); Alkaline Phosphatase 108 U/L (46-116); BUN 7 mg/dL (7-18); Bilirubin, Total 0.2 mg/dL (0.2-1.0); CREATININE 0.5 mg/dL (0.55-1.02); Chloride 108 mmol/L (98-107); Glucose 91 mg/dL (74-106); Potassium 3.5 mmol/L (3.5-5.1); Sodium 140 mmol/L (136-145); Total Protein 5.8 g/dL (6.4-8.2)
--- NOTE | 2022-08-13 22:30 | DI.CT_ITS ---
Exam(s) CT ABDOMEN PELVIS W EXAM: CT ABDOMEN PELVIS W CLINICAL HISTORY: left lower quad/groin pain TECHNIQUE: Imaging Protocol: Axial computed tomography images with coronal and sagittal reformatted images were created and reviewed CONTRAST MATERIAL: Intravenous: Omnipaque 350 Contrast volume:100 mL Oral: No COMPARISON: No exams were available for comparison FINDINGS: ABDOMEN: Lung Bases: Normal where visualized. Liver: Normal density. No measurable mass. There are few tiny hypodensities seen within the liver. T hey are too small for further characterization but likely reflect small cysts. Portal, Superior Mesenteric, and Splenic Veins: Unremarkable. Gallbladder and Biliary Tract: No radiodense calculus or dilation. Pancreas: Normal density, no abnormal calcifications or inflammatory process. Spleen: Normal. Adrenals: No masses seen. Kidneys: Normal size, contour and axis. There is a 2 mm nonobstructing stone in the midpole of the le ft kidney. There is an 8 mm cyst in the left kidney. No follow-up is recommended. Abdominal Aorta: Abdominal portion non-dilated. Atherosclerosis is present. Bowel: No obstruction or bowel wall thickening. No evidence of appendicitis. Peritoneal Cavity: No ascites, collection or mesenteric inflammatory response. No free air. Lymph Nodes: Within normal limits. Bones: Within normal limits for the patient's age. Soft Tissues: There is subcutaneous air seen in the soft tissues just above the left inguinal region. There is a small gas bubble demonstrated in the lower right pelvic wall. There is mild stranding i n the subcutaneous fat in the lower anterior abdominal wall. PELVIS: Bladder: Symmetric distention, no gross wall thickening. Reproductive Organs: The uterus is markedly enlarged and heterogeneous. There is at least 1 discrete hypo dense mass in the posterior fundal region measuring 2.3 x 3.1 cm suggestive of fibroid. Lymph Nodes: Within normal limits. Bones: Within normal limits for the patient's age. IMPRESSION: 1. Enlarged uterus with stranding in the infrapubic subcutaneous fat and small foci of gas in the ant erior abdominal wall. The findings are consistent with the uterus status post se ction. No focal fluid collection is seen to suggest an abscess. 2. Uterine fibroid. 3. No other acute abdominal or pelvic process. RADIATION DOSE DELIVERED: 1,203.62mGy.cm Total DLP DATA REPOSITORY: All CT scans at this facility are submitted to the National Radiology Data Registry (NRDR) Dose Index Registry (DIR) with the [employer] (ACR). RADIATION OPTIMIZATION: All CT scans at this facility use at least one of these dose optimization te chniques: automated exposure control; mA and/or kV adjustment per patient size (includes targeted exa ms where dose is matched to clinical indication); or iterative reconstruction.
[2022-08-13] MEDS: Omnipaque 350 MG/ML 100 ML BTL IJ (22:59)
[2022-08-13] MEDS: Normal Saline - Diluent 50 ML VIAL IJ (22:59)
--- NOTE | 2022-08-13 23:41 | DI.VRAD_ITS ---
PROCEDURE INFORMATION: Exam: CT Abdomen And Pelvis With Contrast Exam date and time: 08/13/2022 10:46 PM Age: 47 years old Clinical indication: Other: Left lower quad/ groin pain; Prior surgery; Surgery date: 3-7 days post-operative TECHNIQUE: Imaging protocol: Computed tomography of the abdomen and pelvis with contrast. Contrast material: 350; Contrast volume: 100 ml; Contrast route: INTRAVENOUS (IV); COMPARISON: US OB PAT WEIGHT 06/15/2022 10:14 AM FINDINGS: Liver: There is diffuse decrease in hepatic parenchymal density, consistent with mild fatty infiltration. No mass Gallbladder and bile ducts: Normal. No calcified stones. No ductal dilation. Pancreas: Normal. No ductal dilation. Spleen: Normal. No splenomegaly. Adrenal glands: Normal. No mass. Kidneys and ureters: 1 cm simple cyst in lower pole of left kidney. 2-3 mm radiopaque calculus in interpolar left kidney. No radiopaque ureteric or right renal calculi. No hydronephrosis. Stomach and bowel: Unremarkable. No obstruction. No mucosal thickening. Appendix: No evidence of appendicitis. Intraperitoneal space: No free intraperitoneal gas or ascites. Vasculature: Unremarkable. No abdominal aortic aneurysm. Lymph nodes: Unremarkable. No enlarged lymph nodes. Urinary bladder: Urinary bladder is distended without wall thickening or intraluminal radiopaque calculus identified. Reproductive: Enlarged uterus measures just under 20 cm longitudinally. Hypoenhancing lesion is demonstrated in posterosuperior right fundal region, measuring 4.5 cm. section defect noted anteriorly in lower uterine segment. Bones/joints: Unremarkable. No acute fracture. Soft tissues: Gas bubble is demonstrated in lower right pelvic wall and gas bubbles are demonstrated anteriorly about left lower pelvic wall. There is stranding of subcutaneous fat in infrapubic area. IMPRESSION: 1. Enlarged uterus, status post section. 2. Lesion in fundus of the uterus most consistent with a fibroid. 3. Postoperative changes. 4. Distended urinary bladder. 5. Minute left renal calculus. Dictated and Authenticated by: Eleazar Lara MD. Ordering:GILBERTO Salazar MD
[2022-08-14 00:20] VITALS: BP 132/85; PULSE 67; RESP 16; TEMP 36.5; O2SAT 98
== END 2022-08-14 00:33 | disposition home or self-care (01) ==
PROVIDERS: Emergency Provider Student in an Organized Health Care Education/Training Program; PCP Family Medicine
DX: R10.32 Left lower quadrant pain (principal)
CPT/HCPCS: 36415; 80053; 96361; 96374; 96375; 99285; 74177; 83605; 85025; J2270; J3490

== ENCOUNTER 2022-10-03 18:06 | Emergency (ER) | payer MEDICAID, SELFPAY ==
[2022-10-03] VITALS (18 sets, daily range): BP systolic 114–151; BP diastolic 80–92; PULSE 55–91; RESP 9–21; TEMP 36.6–36.9; O2SAT 96–98
--- NOTE | 2022-10-03 18:30 | DI.CT_ITS ---
Exam(s) CT RENAL COLIC WO EXAM: CT RENAL COLIC WO CLINICAL HISTORY: left flank pain. TECHNIQUE: Imaging Protocol: Axial computed tomography images with coronal and sagittal reformatted images were created and reviewed. COMPARISON: CT CT ABDOMEN PELVIS W from 08/13/2022 FINDINGS: ABDOMEN: Lung Bases: Normal where visualized. Liver: Normal density. No measurable mass. Gallbladder and biliary tract: No radiodense calculus or biliary ductal dilation. Pancreas: Normal density, no abnormal calcifications or inflammatory process. Spleen: Normal. Kidneys: Normal size, contour and axis.There is a 4 mm stone at the left UVJ causing mild hydronephro sis. No masses seen. Adrenal glands: No mass is seen. Lymph nodes: Within normal limits. Abdominal Aorta: Abdominal portion non-dilated. Minimal atherosclerosis. PELVIS: Bladder:The urinary bladder is incompletely distended limiting evaluation. Bowel: No obstruction or bowel wall thickening. There is no evidence of ascites. Peritoneal cavity: No ascites, collection or mesenteric inflammatory response. No free air. Reproductive organs: Unremarkable as visualized. Bones: Within normal limits. Soft Tissues: Within normal limits. IMPRESSION: 4 mm stone at the left UVJ causing mild hydronephrosis. RADIATION DOSE DELIVERED: 957.07mGy.cm Total DLP DATA REPOSITORY: All CT scans at this facility are submitted to the National Radiology Data Registry (NRDR) Dose Index Registry (DIR) with the [employer] (ACR). RADIATION OPTIMIZATION: All CT scans at this facility use at least one of these dose optimization te chniques: automated exposure control; mA and/or kV adjustment per patient size (includes targeted exa ms where dose is matched to clinical indication); or iterative reconstruction.
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
[2022-10-03 18:56] LABS: Abs Immature Grans 0.05 10^3/uL (0.0-0.06); Absolute Basophil Count 0.05 10^3/uL (0.0-0.2); Absolute Eosinophil Count 0.23 10^3/uL (0.0-0.7); Absolute Lymphocyte Count 2.53 10^3/uL (1.2-3.4); Absolute Monocyte Count 0.39 10^3/uL (0.1-0.8); Absolute Neutrophil Count 7.11 10^3/uL (1.2-6.7); Basophils % 0.5; Eosinophils % 2.2; HCT 38.9 % (36.0-46.0); HGB 13.1 g/dL (11.2-15.7); Immature Grans % 0.5; Lymphocytes % 24.4; MCH 29.8 pg (27.0-33.0); MCHC 33.7 % (32.0-36.0); MCV 89 fL (80-95); MPV 9.4 fL (8.0-11.0); Monocytes % 3.8; Neutrophils % 68.6; Platelet Count 394 10^3/uL (130-400); RBC 4.39 10^6/uL (3.93-5.22); RDW 12.5 % (11.7-14.6); RDW-SD 40.9 fL; WBC 10.36 10^3/uL (4.4-10.8)
[2022-10-03] MEDS: Ketorolac 30 MG/ML VIAL IVP (19:08)
[2022-10-03] MEDS: Ondansetron 4 MG/2 ML VIAL IVP (19:09)
[2022-10-03] MEDS: Lactated Ringers 1,000 ML 1000 ML IV (19:14)
[2022-10-03 19:22] LABS: ALT 19 U/L (14-59); AST 14 U/L (15-37); Albumin 3.6 g/dL (3.4-5.0); Alkaline Phosphatase 121 U/L (46-116); Anion Gap 9.2 mmol/L (3-11); BUN 8 mg/dL (7-18); Bilirubin, Total 0.2 mg/dL (0.2-1.0); CO2 25.8 mmol/L (21.0-32.0); CREATININE 0.8 mg/dL (0.55-1.02); Calcium 8.8 mg/dL (8.5-10.1); Chloride 107 mmol/L (98-107); Estimated GFR 92.54 (mL/min/1.73m2); Glucose 107 mg/dL (74-106); Potassium 3.3 mmol/L (3.5-5.1); Sodium 142 mmol/L (136-145); Total Protein 6.8 g/dL (6.4-8.2)
[2022-10-03 19:25] LABS: Lipase 38 U/L (16-77)
[2022-10-03 19:48] LABS: Bilirubin Negative (Negative); Blood Large (Negative); Clarity Cloudy (Clear); Glucose Negative (Negative); Ketones Negative (Negative); Leukocyte Esterase Trace (Negative); Nitrite Negative (Negative); Specific Gravity >= 1.030 (1.005-1.025); Urobilinogen 0.2 mg/dL (Up to 0.2)
[2022-10-03 19:59] LABS: Bacteria Few HPF (Negative); Crystals Negative HPF (Negative); Epithelial Cells Few HPF (Negative); Mucus Trace (Negative); Other Cells Few Yeast (Negative); RBC >50 HPF (0-2)
[2022-10-03 20:00] LABS: C & S Indicated? Yes; Casts Negative LPF (Negative)
--- NOTE | 2022-10-03 20:06 | DI.VRAD_ITS ---
PROCEDURE INFORMATION: Exam: CT Abdomen And Pelvis Without Contrast Exam date and time: 10/03/2022 7:28 PM Age: 47 years old Clinical indication: Other: L flank pain; Prior surgery; Surgery type: 3 c-sections and tubal ligation TECHNIQUE: Imaging protocol: Computed tomography of the abdomen and pelvis without contrast. Radiation optimization: All CT scans at this facility use at least one of these dose optimization techniques: automated exposure control; mA and/or kV adjustment per patient size (includes targeted exams where dose is matched to clinical indication); or iterative reconstruction. COMPARISON: CT ABDOMEN PELVIS W 08/13/2022 10:46 PM FINDINGS: Liver: Normal. No mass. Gallbladder and bile ducts: Normal. No calcified stones. No ductal dilation. Pancreas: Normal. No ductal dilation. Spleen: Normal. No splenomegaly. Adrenal glands: Normal. No mass. Kidneys and ureters: Faint nephrocalcinosis. 4-5 mm left UVJ calculus with mild left hydroureteronephrosis Stomach and bowel: Unremarkable. No obstruction. No mucosal thickening. Appendix: No evidence of appendicitis. Intraperitoneal space: Unremarkable. No free air. No significant fluid collection. Vasculature: Unremarkable. No abdominal aortic aneurysm. Lymph nodes: Unremarkable. No enlarged lymph nodes. Urinary bladder: Unremarkable as visualized. Reproductive: Unremarkable as visualized. Bones/joints: Unremarkable. No acute fracture. Soft tissues: Tiny/small periumbilical fat containing hernia IMPRESSION: Mild left obstructive uropathy secondary to a 4-5 mm left UVJ calculus Faint nephrocalcinosis Dictated and Authenticated by: Jose Anderson MD. Ordering:BESS Vaz MD
--- NOTE | 2022-10-03 20:44 | NUR.NOTE ---
Referral sent to [facility] for Urology for Kidney stones
--- NOTE | 2022-10-06 14:14 | NUR.NOTE ---
Nursing Note: Accessed chart to look up whether or not on antibiotic.
== END 2022-10-03 21:09 | disposition home or self-care (01) ==
PROVIDERS: Emergency Provider Physician Assistant; PCP Family Medicine
DX: N20.0 Calculus of kidney (principal); K59.00 Constipation, unspecified
CPT/HCPCS: 36415; 80053; 81025; 83690; 96361; 96374; 96375; 99284; 74176; 81003; 81015; 85025; 87086; J1885; J2405

== ENCOUNTER → 2023-03-09 00:11 | Outpatient (CLI) | payer MEDICAID, SELFPAY ==
--- NOTE | 2023-03-09 | DI.US_ITS ---
Exam(s) US THYROID EXAM: US THYROID CLINICAL HISTORY: LEFT THYROID NODULE E04.1. TECHNIQUE: Ultrasound thyroid performed using standard protocol. COMPARISON: The prior films are not available at this time for comparison. FINDINGS: ISTHMUS: 0.4 mm RIGHT LOBE: Size: 5.6 cc by 1.4 AP by 1.4 transverse cm Echogenicity: Normal. Vascularity: Normal. Nodules: None. LEFT LOBE: Size: 6.0 cc by 2.4 AP by 2.8 transverse cm Echogenicity: Normal. Vascularity: Normal. Nodules: There is a solitary predominantly solid nodule in the left lobe. It measures 4.1 cc by 2.0 AP by 2.6 transverse cm. It is isoechoic. There is a punctate echogenic focus present. The finding is consistent with a TI rads level 4 nodule. Due to its size, FNA is recommended. OTHER FINDINGS: None. IMPRESSION: TI rads level 4 nodule in the left lobe. Due to its size, FNA is recommended. DATA REPOSITORY:
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
== END ==
PROVIDERS: PCP Family Medicine; Visit Provider Family Medicine
DX: E04.1 Nontoxic single thyroid nodule (principal)
CPT/HCPCS: 76536

== ENCOUNTER 2023-03-15 17:40 | Emergency (ER) | payer MEDICAID, SELFPAY ==
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
[2023-03-15 17:46] VITALS: BP 130/90; PULSE 119; RESP 20; TEMP 36.7; O2SAT 94
--- NOTE | 2023-03-15 18:32 | W.EDPROG ---
Date of service: 03/15/23 Time of Service: 18:32 Medical Decision Making I had initially signed up to evaluate this 47-year-old female but I did not see her nor participate in her care as she was seen by the advanced practitioner working on shift with me. Discharge Plan Discharge Details Chief Complaint: PsychEval Primary Care Provider: Makeda Dubois ED Provider: Kenzie Matthews Home Meds and New Rx's Prescriptions: No Action ibuprofen 600 mg tablet 600 mg PO Q6H PRN (Reason: pain) Qty: 60 0RF buspirone 10 mg Tablet 10 mg PO BID escitalopram oxalate [Lexapro] 10 mg Tablet 30 mg PO QDAY Discharge Data Discharge Date/Time-TO BE ENTERED AT DEPARTURE: 03/15/23 19:34
[2023-03-15 18:36] VITALS: PULSE 110
--- NOTE | 2023-03-15 19:52 | NUR.NOTE ---
Pt placed on care management list for mental joslyn assistance and transportation help. Nursing Note:
== END 2023-03-15 19:34 | disposition home or self-care (01) ==
PROVIDERS: Emergency Provider Physician Assistant; PCP Family Medicine
DX: Z53.21 Procedure and treatment not carried out due to patient leaving prior to being seen by health care provider (principal)
CPT/HCPCS: 99282

== ENCOUNTER → 2023-10-26 03:15 | Outpatient (CLI) | payer MEDICAID, SELFPAY ==
--- NOTE | 2023-10-26 08:55 | DI.MAMMO_ITS ---
Exam(s) MAMMO SCREENING EXAM: MAMMO SCREENING CLINICAL HISTORY: screening,z12.39 TECHNIQUE: Bilateral full field digital CC and MLO mammographic images were obtained with 3D tomosyn thesis and utilizing computer aided detection (CAD). COMPARISON: This is a baseline examination. FINDINGS: Masses/Architectural Distortion: There is an ovoid density in the central right breast on the cranioc audad view measuring approximately 7 mm. There are no areas of architectural distortion. Microcalcifications: No suspicious pleomorphic-type are seen. Skin Thickening/Nipple Retraction: None. IMPRESSION: 1. 7 mm nodule in the central right breast. 2. Spot compression views requested. Limited right breast ultrasound may be indicated at that time. BI-RADS Category 0 - Assessment Incomplete: Need additional imaging evaluation Breast Density - Category C - Heterogeneously dense Breast density category C or D implies that the patient has dense breast tissue. Dense breast tissue is very common and is not abnormal but dense breast tissue can make it harder to find cancer on a ma mmogram. Also, dense breast tissue may increase their breast cancer risk. This information about the result of the mammogram report was provided to the patient to raise their awareness. Use this report when you speak with the patient about their risks for breast cancer, which includes their family hist ory. At that time, you may recommend for more screening tests (Ultrasound or MRI) as they might be us eful based on their risk. A negative radiographic report should not delay biopsy if a dominant or clinically suspicious mass is present. Up to ten percent of cancers are not identified on mammography. A negative report may reinforce clinical impression. Adenosis and dense breasts may obscure an underlying neoplasm. False positive reports average 6 to 10%. Patient will receive a letter notifying them of these results.
== END ==
PROVIDERS: PCP Family Medicine; Visit Provider Obstetrics & Gynecology
DX: Z12.31 Encounter for screening mammogram for malignant neoplasm of breast (principal); N63.10 Unspecified lump in the right breast, unspecified quadrant; R92.333 Mammographic heterogeneous density, bilateral breasts
CPT/HCPCS: 77063; 77067

== ENCOUNTER → 2023-10-31 03:30 | Outpatient (CLI) | payer MEDICAID, SELFPAY ==
--- NOTE | 2023-10-31 | DI.US_ITS ---
Exam(s) MG MAMMO SCREEN CALL BACK UNI US BREAST RT COMPLETE EXAM: MG MAMMO SCREEN CALL BACK UNI-RIGHT AND COMPLETE RIGHT BREAST ULTRASOUND CLINICAL HISTORY: F/U MAMMO, 7 MM NODULE CENTRAL RT BREAST,R92.8. TECHNIQUE: Unilateral spot mammographic images obtained with 3D tomosynthesisand utilizing computer aided detection (CAD). . Complete RIGHT breast Ultrasound was also performed, including all 4 quadrants, the retroareolar waldo on, and the ipsilateral axilla. COMPARISON: Prior mammograms were reviewed. This additional imaging was performed due to findings described on the recent screening mammogram of 10/26/2023. FINDINGS: DIAGNOSTIC MAMMOGRAM: Additional mammographic views performed todayrender this area less concerning. COMPLETE RIGHT BREAST ULTRASOUND: Ultrasound performed today reveals no evidence of solid or significant cystic lesions in all 4 quadra nts.. Scanning of the ipsilateral axilla reveals no significant adenopathy. IMPRESSION: 1. No radiographic evidence of malignancy. 2. Negative complete right breast ultrasound Appropriate follow-up is to keep this patient on a yearly mammogram schedule, with earlier imaging i f a self detected breast change is noted.. The patient was informed of these findings and recommendations by myself prior to leaving the departm ent today. BI-RADS Category 2 - Benign Findings Breast Density - Category B - Scattered areas of fibroglandular density Breast density Category C or D implies that the patient has dense breast tissue. Dense breast tissue can make it harder to find cancer on a mammogram. Dense breast tissue is also associated with an incr eased risk of breast cancer. This information about the result of the mammogram report was provided to the patient to raise their awareness. Use this report when you speak with the patient about their risks for breast cancer, which includes their family history. At that time, you may recommend additional screening tests (Ultrasoun d or MRI) as these tests may add significant information. A negative radiographic report should not delay biopsy if a dominant or clinically suspicious mass is present. Up to ten percent of cancers are not identified on mammography. A negative report may reinforce clinical impression. Adenosis and dense breasts may obscure an underlying neoplasm. False positive reports average 6 to 10%. Patient will receive a letter notifying them of these results.
== END ==
PROVIDERS: PCP Family Medicine; Visit Provider Obstetrics & Gynecology
DX: Z12.31 Encounter for screening mammogram for malignant neoplasm of breast (principal); R92.8 Other abnormal and inconclusive findings on diagnostic imaging of breast
CPT/HCPCS: 76642; 77063; 77067

== ENCOUNTER 2023-12-30 11:09 | Emergency (ER) | payer MEDICAID, SELFPAY ==
[2023-12-30] VITALS (30 sets, daily range): BP systolic 135–164; BP diastolic 77–114; PULSE 58–83; RESP 15; TEMP 36.9; O2SAT 96–100
--- NOTE | 2023-12-30 11:15 | DI.CT_ITS ---
Exam(s) CT ABDOMEN PELVIS W EXAM: CT ABDOMEN PELVIS W CLINICAL HISTORY: left flank pain with radiation to abdomen. TECHNIQUE: Imaging Protocol: Axial computed tomography images with coronal and sagittal reformatted images were created and reviewed CONTRAST MATERIAL: Intravenous: Omnipaque 350 Contrast volume:100 ml Oral: no COMPARISON: CT CT RENAL COLIC WO from 10/03/2022 FINDINGS: ABDOMEN and PELVIS: Lung Bases: No acute findings. Liver: Normal density. No suspicious mass. Gallbladder and biliary tract: No radiodense calculus. No biliary dilation. Pancreas: Normal density. No abnormal calcifications or inflammatory process. No evidence of mass. Spleen: Normal. Kidneys: Normal size, contour and axis. No radiodense stones. No obstructive uropathy. No suspicious masses seen. Adrenal glands: No masses seen. Vasculature: Abdominal aorta non-dilated. Soft tissues: Unremarkable. Bladder: No gross wall thickening. No calculi.No focal mass. Bowel: No obstruction. No bowel wall thickening. Appendix normal. Peritoneal cavity: No ascites. No focal collection. No mesenteric inflammatory response. Bones: Unremarkable for age. Reproductive organs: Uterus enlarged with several fibroids. There appear to have enlarged since the prior exam. Collapsing follicle right ovary. Trace amount of surrounding fluid. Findings likely ph ysiologic. Lymph nodes: No pathologically enlarged lymph nodes. IMPRESSION:: No acute abnormality in the abdomen or pelvis. Collapsing follicle right ovary. Sma ll amount of adjacent fluid. Findings likely physiologic. RADIATION DOSE DELIVERED: Total DLP DATA REPOSITORY: All CT scans at this facility are submitted to the National Radiology Data Registry (NRDR) Dose Index Registry (DIR) with the [employer] (ACR). RADIATION OPTIMIZATION: All CT scans at this facility use at least one of these dose optimization te chniques: automated exposure control; mA and/or kV adjustment per patient size (includes targeted exa ms where dose is matched to clinical indication); or iterative reconstruction.
--- NOTE | 2023-12-30 11:15 | RT.EKG_ITS ---
APPROVED REPORT Exam: Resting ECG Reason for Exam: chest pain Patient Location: E HR:71 bpm ECG Measurements Heart Rate 71 AXIS WY 154 P -28 QRSd 93 QRS 38 QT 434 T 16 QTc 471 Conclusion Sinus rhythm...normal P axis, V-rate 60- 99 sinu rhythm, normal axis, normal intergals, non ischemic
[2023-12-30] MEDS: Normal Saline 1,000 ML 1000 ML IV (11:27)
[2023-12-30] MEDS: MORPHine 4 MG/ML SYR IVP (11:28)
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
[2023-12-30] MEDS: Normal Saline - Diluent 50 ML VIAL IJ (12:05)
[2023-12-30] MEDS: Omnipaque 350 MG/ML 100 ML BTL IJ (12:06)
[2023-12-30 12:07] LABS: Abs Immature Grans 0.02 10^3/uL (0.0-0.06); Absolute Basophil Count 0.03 10^3/uL (0.0-0.2); Absolute Eosinophil Count 0.24 10^3/uL (0.0-0.7); Absolute Lymphocyte Count 2.69 10^3/uL (1.2-3.4); Absolute Monocyte Count 0.39 10^3/uL (0.1-0.8); Basophils % 0.4 %; Eosinophils % 3.4 %; HCT 37.6 % (36.0-46.0); HGB 12.7 g/dL (11.2-15.7); Immature Grans % 0.3 %; Lymphocytes % 38.6 %; MCH 30.6 pg (27.0-33.0); MCHC 33.8 % (32.0-36.0); MCV 91 fL (80-95); MPV 9.9 fL (8.0-11.0); Monocytes % 5.6 %; Neutrophils % 51.7 %; Platelet Count 357 10^3/uL (130-400); RBC 4.15 10^6/uL (3.93-5.22); RDW 12.2 % (11.7-14.6); RDW-SD 40.3 fL; WBC 6.97 10^3/uL (4.4-10.8)
[2023-12-30] MEDS: Normal Saline Flush 10 ML SYR IVP (12:16)
[2023-12-30 12:19] LABS: ALT 18 U/L (14-59); AST 10 U/L (15-37); Alkaline Phosphatase 90 U/L (46-116); Anion Gap 11.2 mmol/L (3-11); BUN 7 mg/dL (7-18); Bilirubin, Total 0.26 mg/dL (0.2-1.0); CO2 22.8 mmol/L (21.0-32.0); CREATININE 0.7 mg/dL (0.55-1.02); Calcium 8.6 mg/dL (8.5-10.1); Chloride 104 mmol/L (98-107); Estimated GFR 107.95 (mL/min/1.73m2); Glucose 90 mg/dL (74-106); Lipase 39 U/L (16-77); Potassium 3.6 mmol/L (3.5-5.1); Sodium 138 mmol/L (136-145); Total Protein 7.2 g/dL (6.4-8.2); Troponin I < 50 ng/L (< or =60)
[2023-12-30 12:39] LABS: Bilirubin Negative (Negative); Blood Trace-intact (Negative); Clarity Clear (Clear); Glucose Negative (Negative); Ketones Negative (Negative); Leukocyte Esterase Negative (Negative); Nitrite Negative (Negative); Urobilinogen 0.2 mg/dL (Up to 0.2)
[2023-12-30 12:49] LABS: Bacteria Negative HPF (Negative); C & S Indicated? No; Casts Negative LPF (Negative); Crystals Negative HPF (Negative); Epithelial Cells Few HPF (Negative); Mucus Negative (Negative); RBC 0-2 HPF (0-2); WBC 0-2 HPF (0-5)
[2023-12-30] MEDS: HYDROmorphone 2 MG/ML SYR 1 MG IVP (12:49)
--- NOTE | 2023-12-30 13:21 | DI.VRAD_ITS ---
PROCEDURE INFORMATION: Exam: CT Abdomen And Pelvis With Contrast Exam date and time: 12/30/2023 12:13 PM Age: 48 years old Clinical indication: Other: Left flank pain with radiation to abdomen; Prior surgery; Surgery date: 6+ months; Surgery type: TECHNIQUE: Imaging protocol: Computed tomography of the abdomen and pelvis with contrast. Contrast material: OMNIPAQUE 350; Contrast volume: 100 ml; Contrast route: INTRAVENOUS (IV); COMPARISON: CT RENAL COLIC WO 10/03/2022 7:28 PM FINDINGS: Lungs: Mild ground-glass density in the right basilar lower lobe may represent atelectasis. Liver: Normal. No mass. Gallbladder and biliary ducts: Normal. No calcified stones. No ductal dilation. Pancreas: Normal. No ductal dilation. Spleen: Normal. No splenomegaly. Adrenal glands: Normal. No mass. Kidneys and ureters: There is a 1.0 cm cyst in the anterior left mid kidney. Stomach and bowel: . No obstruction. No mucosal thickening. Appendix: No evidence of appendicitis. Intraperitoneal space: Unremarkable. No free air. No significant fluid collection. Vasculature: No abdominal aortic aneurysm. Lymph nodes: No enlarged lymph nodes. Urinary bladder: Unremarkable as visualized. Reproductive: There is a 1.9 x 1.2 cm involuting cyst with thick enhancing wall in the right adnexa and may represent a corpus luteal cyst (62 series 4) There is linear high density noted in the right side of the adnexa anterior to the cyst (62 series 4). Bones/joints: Disc degenerative changes with [id number] loss of disc height at L3-L4 and L4-L5. Soft tissues: Small fat containing umbilical hernia. IMPRESSION: 1. There is a cyst with thick enhancing wall in the right adnexa and may represent involuting or ruptured corpus luteal cyst. There is small volume fluid in the cul-de-sac which may be within the physiological size range. 2. Otherwise no acute abdominal abnormalities. Dictated and Authenticated by: Hemant Soares MD. Ordering:JAMIN Espino MD
== END 2023-12-30 14:07 | disposition home or self-care (01) ==
PROVIDERS: Emergency Provider Physician Assistant; PCP Family Medicine
DX: R10.12 Left upper quadrant pain (principal); Z87.442 Personal history of urinary calculi
CPT/HCPCS: 80053; 81025; 83690; 93005; 96361; 96374; 96375; 99285; 74177; 81003; 81015; 84484; 85025; 93010; 99283; J1170; J2270; J3490

== ENCOUNTER 2024-01-09 14:15 | Observation (INO) | payer MEDICAID, SELFPAY ==
[2024-01-09] VITALS (57 sets, daily range): BP systolic 107–139; BP diastolic 61–92; PULSE 62–118; RESP 12–28; TEMP 36.6–37.3; O2SAT 95–100
--- NOTE | 2024-01-09 14:15 | RT.EKG_ITS ---
APPROVED REPORT Exam: Resting ECG Reason for Exam: ABD pain Patient Location: E HR:113 bpm ECG Measurements Heart Rate 113 AXIS SC 77 P 166 QRSd 83 QRS 80 QT 312 T 126 QTc 429 Conclusion Sinus or ectopic atrial tachycardia...P axis (-45,135), rate> 99 Narrow complex sinus tachycardia at a rate of 113. Normal axis. Intervals within normal limits. No obvious ST segment abnormalities. T wave flattening in aVL. Difficult interpretation secondary to significant artifact. Appears similar to prior with the exception of tachycardia. Prior dated last month.
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
[2024-01-09] MEDS: Normal Saline 500 ML IV (15:04)
[2024-01-09 15:11] LABS: Abs Immature Grans 0.02 10^3/uL (0.0-0.06); Absolute Basophil Count 0.04 10^3/uL (0.0-0.2); Absolute Eosinophil Count 0.06 10^3/uL (0.0-0.7); Absolute Lymphocyte Count 0.38 10^3/uL (1.2-3.4); Absolute Neutrophil Count 9.85 10^3/uL (1.2-6.7); Basophils % 0.4 %; Eosinophils % 0.6 %; HCT 40.1 % (36.0-46.0); HGB 13.5 g/dL (11.2-15.7); Immature Grans % 0.2 %; Lymphocytes % 3.6 %; MCH 30.6 pg (27.0-33.0); MCHC 33.7 % (32.0-36.0); MCV 91 fL (80-95); MPV 9.9 fL (8.0-11.0); Monocytes % 1.9 %; Neutrophils % 93.3 %; Platelet Count 299 10^3/uL (130-400); RBC 4.41 10^6/uL (3.93-5.22); RDW 12.8 % (11.7-14.6); RDW-SD 42.4 fL; WBC 10.55 10^3/uL (4.4-10.8)
--- NOTE | 2024-01-09 15:15 | RT.EKG_ITS ---
APPROVED REPORT Exam: Resting ECG Reason for Exam: Chest pain Patient Location: E HR:91 bpm ECG Measurements Heart Rate 91 AXIS LA 150 P -40 QRSd 93 QRS 24 QT 343 T 242 QTc 423 Conclusion Sinus rhythm...normal P axis, V-rate 60- 99 Nonspecific T abnormalities, diffuse leads...T <-0.10mV, ant/lat/inf Narrow complex normal sinus rhythm at a rate of 91. Normal axis. Intervals within normal limits. N o ST segment abnormalities. T wave flattening V2 and T wave inversions V2 through V6. Compared to gisele jarrett dated last month T wave inversions in leads V4 to V6 are new.
--- NOTE | 2024-01-09 15:24 | DI.RAD_ITS ---
Exam(s) XR CHEST 1V IN DI DEPT EXAM: XR CHEST 1V IN DI DEPT CLINICAL HISTORY: Chest pain. TECHNIQUE: 2D digital imaging was performed. COMPARISON: CT CT ABDOMEN PELVIS W from 01/09/2024 FINDINGS: Single AP portable view. Heart size is upper normal. The mediastinum is not widened. Lungs are clear. No infiltrates nor obvious pleural effusions. IMPRESSION: No acute pulmonary findings on this single AP portable view of the chest. DATA REPOSITORY: RADIATION DOSE DELIVERED:
[2024-01-09 15:28] LABS: Lipase 31 U/L (16-77)
[2024-01-09 15:30] LABS: HCG Qual (Serum) Negative
[2024-01-09 15:34] LABS: BUN 11 mg/dL (7-18); CREATININE 0.7 mg/dL (0.55-1.02); Calcium 8.7 mg/dL (8.5-10.1); Chloride 103 mmol/L (98-107); Estimated GFR 107.95 (mL/min/1.73m2); Glucose 125 mg/dL (74-106); Potassium 3.4 mmol/L (3.5-5.1); Sodium 139 mmol/L (136-145)
[2024-01-09 15:35] LABS: Troponin I < 50 ng/L (< or =60)
[2024-01-09] MEDS: Ondansetron 4 MG/2 ML VIAL IVP (15:36)
[2024-01-09] MEDS: fentaNYL 100 MCG/2 ML VIAL 50 MCG IVP (15:36)
[2024-01-09 15:45] LABS: D-Dimer 520 ng/mlFEU (<500)
--- NOTE | 2024-01-09 15:45 | DI.CT_ITS ---
Exam(s) CT ABDOMEN PELVIS W EXAM: CT ABDOMEN PELVIS W CLINICAL HISTORY: Abdominal pain TECHNIQUE: Imaging Protocol: Axial computed tomography images with coronal and sagittal reformatted images were created and reviewed. CONTRAST MATERIAL: Intravenous: Omnipaque 350 Contrast volume:100 mL Oral: No COMPARISON: CT CT ABDOMEN PELVIS W from 12/30/2023 FINDINGS: ABDOMEN: Lung Bases: There is a calcified granuloma in the right lower lobe. Liver: Normal density. No measurable mass. Portal, Superior Mesenteric, and Splenic Veins: Unremarkable. Gallbladder and Biliary Tract: No radiodense calculus or dilation. Pancreas: Normal density, no abnormal calcifications or inflammatory process. Spleen: Normal. Adrenals: No masses seen. Kidneys: Normal size, contour and axis. No radiodense stones or obstructive uropathy. There are simpl e renal cysts. No follow-up is recommended. Abdominal Aorta: Abdominal portion non-dilated. Atherosclerotic calcification is present. Bowel: There is mild wall thickening in loops of small bowel in the pelvis. Fluid-filled loops of sm all and large bowel are present which may reflect a diarrheal illness. The stomach is incompletely d istended limiting evaluation. No evidence of appendicitis. Peritoneal Cavity: No ascites, collection or mesenteric inflammatory response. No free air. Lymph Nodes: Within normal limits. Bones: Within normal limits for the patient's age. Soft Tissues: There is a small fat containing umbilical hernia. PELVIS: Bladder: Symmetric distention, no gross wall thickening. Reproductive Organs: There appears to be a tampon in place. Lymph Nodes: Within normal limits. Bones: Within normal limits for the patient's age. IMPRESSION: 1. There is bowel wall thickening in loops of small bowel in the pelvis. In addition, there is fluid seen in small bowel and colon. The findings are suspicious for an enterocolitis. No evidence of bowel obstruction. 2. Findings were discussed with Dr. Barry at 5:15 p.m. on 01/09/2024. RADIATION DOSE DELIVERED: 1,403.43mGy.cm Total DLP DATA REPOSITORY: All CT scans at this facility are submitted to the National Radiology Data Registry (NRDR) Dose Index Registry (DIR) with the [employer] ([employer]). RADIATION OPTIMIZATION: All CT scans at this facility use at least one of these dose optimization te chniques: automated exposure control; mA and/or kV adjustment per patient size (includes targeted exa ms where dose is matched to clinical indication); or iterative reconstruction.
[2024-01-09] MEDS: Omnipaque 350 MG/ML 100 ML BTL IJ (16:26)
[2024-01-09 16:27] LABS: Troponin I < 50 ng/L (< or =60)
[2024-01-09] MEDS: Normal Saline - Diluent 50 ML VIAL IJ (16:27)
[2024-01-09 17:41] LABS: Bilirubin Negative (Negative); Blood Large (Negative); Clarity Clear (Clear); Glucose Negative (Negative); Ketones Negative (Negative); Leukocyte Esterase Negative (Negative); Nitrite Negative (Negative); Urobilinogen 0.2 mg/dL (Up to 0.2); pH 6.5 (5-8)
[2024-01-09 17:50] LABS: Bacteria Negative HPF (Negative); C & S Indicated? No; Casts Negative LPF (Negative); Crystals Negative HPF (Negative); Epithelial Cells Few HPF (Negative); Mucus Negative (Negative); WBC 0-2 HPF (0-5)
[2024-01-09] MEDS: Ondansetron O.D.T. 4 MG TABEF PO (18:23)
[2024-01-09] MEDS: Acetaminophen 500 MG TAB 1000 MG PO (18:23)
[2024-01-09] MEDS: HYDROmorphone 2 MG/ML SYR 0.5 MG IVP (19:20)
[2024-01-09 19:25] LABS: Lactate 1.3 mmol/L (0.6-1.4)
[2024-01-09 19:27] LABS: HCT 35.4 % (36.0-46.0); HGB 12.2 g/dL (11.2-15.7)
[2024-01-09] MEDS: Ketorolac 15 MG/ML VIAL IVP (21:05)
[2024-01-09 22:01] LABS: ESR 8 mm/hr (0-20)
[2024-01-09 22:10] LABS: C-Reactive Protein 1.23 mg/dL (<or=0.5)
[2024-01-09] MEDS: Normal Saline 1,000 ML 125 ML IV (22:33)
[2024-01-09] MEDS: Famotidine 20 MG/2 ML VIAL 40 MG IVP (22:33)
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
--- NOTE | 2024-01-09 23:27 | W.EDPROG ---
Date of service: 01/09/24 Time of Service: 23:28 Medical Decision Making Patient was ultimately hospitalized in the setting of her intractable pain secondary to her gastroenteritis. 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
[2024-01-09 23:55] LABS: Magnesium 1.7 mg/dL (1.8-2.4)
[2024-01-10] VITALS (8 sets, daily range): BP systolic 106–124; BP diastolic 72–96; PULSE 60–76; RESP 16–19; TEMP 36.1–36.7; O2SAT 96–99
[2024-01-10] LABS: ALT 18 U/L (14-59); AST 11 U/L (15-37); Albumin 4.1 g/dL (3.4-5.0); Alkaline Phosphatase 91 U/L (46-116); Bilirubin, Direct 0.1 mg/dL (0.0-0.2); Bilirubin, Total 0.62 mg/dL (0.2-1.0); Total Protein 7.3 g/dL (6.4-8.2)
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
[2024-01-10] MEDS: POTASSIUM CHLORIDE 10 MEQ/100 ML BAG 50 MEQ IV (01:10)
[2024-01-10] MEDS: Normal Saline Flush 10 ML SYR IVP ×3 (01:11→19:59)
[2024-01-10] MEDS: Pantoprazole 40 MG VIAL IVP ×2 (01:11→19:59)
[2024-01-10] MEDS: fentaNYL 100 MCG/2 ML VIAL 50 MCG IVP ×4 (01:18→20:09)
[2024-01-10] MEDS: POTASSIUM CHLORIDE 10 MEQ/100 ML BAG 75 MEQ IV (02:14)
[2024-01-10] MEDS: Normal Saline 1,000 ML 125 ML IV ×3 (02:50→20:00)
[2024-01-10] MEDS: Heparin 5,000 UNITS/ML VIAL 5000 UNITS SC ×3 (05:34→22:27)
[2024-01-10] MEDS: Acetaminophen 325 MG TAB PO ×3 (05:52→15:46)
[2024-01-10 07:03] LABS: HCT 33.5 % (36.0-46.0); HGB 11.5 g/dL (11.2-15.7); MCH 31.2 pg (27.0-33.0); MCHC 34.3 % (32.0-36.0); MCV 91 fL (80-95); MPV 10.5 fL (8.0-11.0); Platelet Count 258 10^3/uL (130-400); RBC 3.69 10^6/uL (3.93-5.22); RDW 12.9 % (11.7-14.6); RDW-SD 42.8 fL; WBC 6.44 10^3/uL (4.4-10.8)
[2024-01-10 07:10] LABS: Prothrombin Time 10.5 sec (9.1-11.1)
[2024-01-10 07:18] LABS: Anion Gap 10.1 mmol/L (3-11); BUN 6 mg/dL (7-18); CO2 23.9 mmol/L (21.0-32.0); CREATININE 0.6 mg/dL (0.55-1.02); Calcium 7.7 mg/dL (8.5-10.1); Chloride 109 mmol/L (98-107); Estimated GFR 112.04 (mL/min/1.73m2); Glucose 89 mg/dL (74-106); Magnesium 1.7 mg/dL (1.8-2.4); Potassium 3.2 mmol/L (3.5-5.1); Sodium 143 mmol/L (136-145)
[2024-01-10 07:35] LABS: ALT 16 U/L (14-59); AST 9 U/L (15-37); Albumin 3.3 g/dL (3.4-5.0); Alkaline Phosphatase 77 U/L (46-116); Bilirubin, Direct 0.1 mg/dL (0.0-0.2); Bilirubin, Total 0.35 mg/dL (0.2-1.0)
[2024-01-10 07:39] LABS: TSH (W/Ref FT4) 4.03 uIU/mL (0.36-3.74)
--- NOTE | 2024-01-10 08:00 | DI.US_ITS ---
Exam(s) US ABDOMEN LIMITED EXAM: US ABDOMEN LIMITED CLINICAL HISTORY: Recurrent epigastric pain and left flank pain TECHNIQUE: Ultrasound abdomen performed using standard protocol. COMPARISON: CT CT ABDOMEN PELVIS W from 01/09/2024 FINDINGS: There is no ascites evident. LIVER: There are no hepatic lesions evident nor dilatation of intrahepatic ducts. GALLBLADDER/BILIARY: There is a small 4-5 mm probable polyp in the gallbladder neck region. Gallbladd er is not edematous and there is no pericholecystic fluid. The common hepatic duct isnot dilated, measuring 3-4mm at the level of bonnie hepatis. PANCREAS: There is no evidence of pancreatic mass nor dilatation of the pancreatic duct. RIGHT KIDNEY:No evidence of solid mass, calculus, nor hydronephrosis. No cortical cysts evident. IMPRESSION: 1. Small 4-5 millimeter probable polyp in the gallbladder neck. No evidence of acute cholecystitis n or dilatation biliary tree. 2. No other significant ultrasound findings in the right upper quadrant. 3. There is no ascites. DATA REPOSITORY:
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
[2024-01-10] MEDS: POTASSIUM CHLORIDE 10 MEQ/100 ML BAG 100 MEQ IVINF ×4 (08:57→14:13)
--- NOTE | 2024-01-10 10:01 | PGE_ITS ---
Date of Service Date of service: 01/10/24 Time of Service: 10:01 Assessment and Plan Assessment and plan (1) Gastroenteritis: Start date: 01/09/24 Status: Acute Assessment and plan: -initially presented to ED with similar abdominal pain symptoms less than 1 week prior to this visit. -Pain is not controlled after a prolonged ED visit with evaluation revealing elevated CRP and D-dimer but normal sed rate and WBC. -She is having no fever -she has not responded to bowel rest and has evidence of gastroenteritis in CT abdo/pelvis -continue bowel rest and IV fluid rehydration -contniue PRN IV fentanyl -f/u c. diff -if abdominal pain or abdominal exam worsens will re-image (2) Epigastric abdominal pain: Start date: 01/09/24 Status: Acute Assessment and plan: -as noted above (3) Hypokalemia: Start date: 01/09/24 Status: Acute Assessment and plan: -Most likely from GI loss/poor intake -K 3.4 on admission, recieved 20mEq IV -K 3.2 on AM 7/3, ordered additional 40Eq IV -f/u AM BMP (4) Acute left flank pain: Start date: 01/09/24 Status: Acute Assessment and plan: -Patient does have a cyst on the left kidney but this does not require follow-up per radiologist interpretation CT. -Most likely is associated with her epigastric pain and etiology of that symptom. (5) Depression: Status: Chronic Assessment and plan: -Coping fairly well with her acute situation. He does not wish to return home but is very uncomfortable. Continue outpatient medical therapy. Qualifiers: Depression Type: persistent depressive disorder Qualified Code(s): F34.1 - Dysthymic disorder Subjective Subjective Interval history since last seen: Patient states that she is feeling better as compared to admission but that she is still experiencing some abdominal pain Exam Narrative Exam Narrative: well appearing female laying in bed in no acute distress, AOx4, heart RRR, lungs CTAB, abdomen soft, mildly distended, without tenderness to palpation, rebound, or guarding Objective Last Vital Signs Temp 97.7 F 01/10/24 07:29 Pulse 60 01/10/24 07:29 Resp 17 01/10/24 07:29 BP 115/79 01/10/24 07:29 Pulse Ox 98 01/10/24 07:29 Laboratory Results - last 24 hr 01/09/24 01/09/24 01/09/24 06:05 15:00 15:01 WBC 10.55 RBC 4.41 Hgb 13.5 Hct 40.1 MCV 91 MCH 30.6 MCHC 33.7 RDW 12.8 Plt Count 299 MPV 9.9 Immature Gran % 0.2 Neutrophils % 93.3 Lymphocytes % 3.6 Monocytes % 1.9 Eosinophils % 0.6 Basophils % 0.4 Nucleated RBC % 0.0 Absolute Neutrophils 9.85 H Absolute Lymphocytes 0.38 L Absolute Monocytes 0.20 Absolute Eosinophils 0.06 Absolute Basophils 0.04 ESR 8 PT 10.5 INR 1.0 D-Dimer 520 H VBG Lactate Sodium 139 Potassium 3.4 L Chloride 103 Carbon Dioxide 26.0 Anion Gap 10.0 BUN 11 Creatinine 0.7 Est GFR (CKD-EPI 2020) 107.95 Glucose 125 H Calcium 8.7 Magnesium Total Bilirubin Conjugated Bilirubin AST ALT Alkaline Phosphatase Troponin I < 50 C-Reactive Protein 1.23 H Total Protein Albumin Lipase 31 TSH 4.03 H Free T4 0.80 Serum HCG, Qual Negative Urine Color Urine Clarity Urine pH Ur Specific [place] Urine Protein Urine Ketones Urine Blood Urine Nitrite Urine Bilirubin Urine Urobilinogen Ur Leukocyte Esterase Urine RBC Urine WBC Ur Epithelial Cells Urine Crystals Urine Bacteria Urine Casts Urine Mucus Ur Culture Indicated? Urine Glucose ABO/Rh A Positive Antibody Screen NEGATIVE 01/09/24 01/09/24 01/09/24 16:03 17:30 19:19 WBC RBC Hgb 12.2 Hct 35.4 L MCV MCH MCHC RDW Plt Count MPV Immature Gran % Neutrophils % Lymphocytes % Monocytes % Eosinophils % Basophils % Nucleated RBC % Absolute Neutrophils Absolute Lymphocytes Absolute Monocytes Absolute Eosinophils Absolute Basophils ESR PT INR D-Dimer VBG Lactate 1.3 Sodium Potassium Chloride Carbon Dioxide Anion Gap BUN Creatinine Est GFR (CKD-EPI 2020) Glucose Calcium Magnesium Total Bilirubin Conjugated Bilirubin AST ALT Alkaline Phosphatase Troponin I < 50 C-Reactive Protein Total Protein Albumin Lipase TSH Free T4 Serum HCG, Qual Urine Color Yellow Urine Clarity Clear Urine pH 6.5 Ur Specific [place] 1.010 Urine Protein Negative Urine Ketones Negative Urine Blood Large H Urine Nitrite Negative Urine Bilirubin Negative Urine Urobilinogen 0.2 Ur Leukocyte Esterase Negative Urine RBC 10-20 H Urine WBC 0-2 Ur Epithelial Cells Few Urine Crystals Negative Urine Bacteria Negative Urine Casts Negative Urine Mucus Negative Ur Culture Indicated? No Urine Glucose Negative ABO/Rh Antibody Screen 01/09/24 01/10/24 21:15 06:05 WBC 6.44 RBC 3.69 L Hgb 11.5 Hct 33.5 L MCV 91 MCH 31.2 MCHC 34.3 RDW 12.9 Plt Count 258 MPV 10.5 Immature Gran % Neutrophils % Lymphocytes % Monocytes % Eosinophils % Basophils % Nucleated RBC % Absolute Neutrophils Absolute Lymphocytes Absolute Monocytes Absolute Eosinophils Absolute Basophils ESR PT INR D-Dimer VBG Lactate Sodium 143 Potassium 3.2 L Chloride 109 H Carbon Dioxide 23.9 Anion Gap 10.1 BUN 6 L Creatinine 0.6 Est GFR (CKD-EPI 2020) 112.04 Glucose 89 Calcium 7.7 L Magnesium 1.7 L 1.7 L Total Bilirubin 0.62 0.35 Conjugated Bilirubin 0.1 0.1 AST 11 L 9 L ALT 18 16 Alkaline Phosphatase 91 77 Troponin I C-Reactive Protein Total Protein 7.3 6.0 L Albumin 4.1 3.3 L Lipase TSH Free T4 Serum HCG, Qual Urine Color Urine Clarity Urine pH Ur Specific [place] Urine Protein Urine Ketones Urine Blood Urine Nitrite Urine Bilirubin Urine Urobilinogen Ur Leukocyte Esterase Urine RBC Urine WBC Ur Epithelial Cells Urine Crystals Urine Bacteria Urine Casts Urine Mucus Ur Culture Indicated? Urine Glucose ABO/Rh Antibody Screen Time Spent with Patient Time Spent with Patient: >50 minutes Time was spent: preparing to see the patient(eg.review tests), obtaining and/or reviewing separately otained hiistory, ordering medications,tests, procedures, referring, communicating with other health child care centre manager, indepentently interpreting results, counseling the patient and care coordination
[2024-01-11 03:59] VITALS: BP 113/88; PULSE 63; RESP 16; TEMP 35.7; O2SAT 96
[2024-01-11] MEDS: Normal Saline 1,000 ML 125 ML IV ×2 (04:32→22:07)
[2024-01-11] MEDS: fentaNYL 100 MCG/2 ML VIAL 50 MCG IVP ×5 (05:08→20:46)
[2024-01-11] MEDS: Heparin 5,000 UNITS/ML VIAL 5000 UNITS SC ×3 (05:09→22:07)
[2024-01-11 07:03] LABS: HCT 34.4 % (36.0-46.0); HGB 11.5 g/dL (11.2-15.7); MCH 30.8 pg (27.0-33.0); MCHC 33.4 % (32.0-36.0); MCV 92 fL (80-95); MPV 9.8 fL (8.0-11.0); Platelet Count 251 10^3/uL (130-400); RBC 3.73 10^6/uL (3.93-5.22); RDW 12.9 % (11.7-14.6); RDW-SD 43.8 fL; WBC 4.05 10^3/uL (4.4-10.8)
[2024-01-11 07:27] LABS: Anion Gap 9.1 mmol/L (3-11); BUN 1 mg/dL (7-18); CO2 25.9 mmol/L (21.0-32.0); CREATININE 0.5 mg/dL (0.55-1.02); Calcium 8.1 mg/dL (8.5-10.1); Chloride 110 mmol/L (98-107); Estimated GFR 117.07 (mL/min/1.73m2); Glucose 91 mg/dL (74-106); Potassium 3.2 mmol/L (3.5-5.1); Sodium 145 mmol/L (136-145)
[2024-01-11 07:36] VITALS: BP 120/93; PULSE 67; RESP 15; TEMP 36.4; O2SAT 99
[2024-01-11] MEDS: Normal Saline Flush 10 ML SYR IVP ×2 (09:22→20:47)
[2024-01-11 11:08] VITALS: BP 134/100; PULSE 68; RESP 16; TEMP 36.7; O2SAT 98
[2024-01-11 14:46] VITALS: BP 124/97; PULSE 67; RESP 16; TEMP 36.1; O2SAT 98
--- NOTE | 2024-01-11 15:55 | PGE_ITS ---
Date of Service Date of service: 01/11/24 Time of Service: 15:55 Assessment and Plan Assessment and plan (1) Gastroenteritis: Start date: 01/09/24 Status: Acute Assessment and plan: -initially presented to ED with similar abdominal pain symptoms on 12/29, 10 days prior to her admission -Pain was not controlled after a prolonged ED visit with evaluation revealing elevated CRP and D-dimer but normal sed rate and WBC. -She has not had fever -she had evidence of gastroenteritis in CT abdo/pelvis 01/08, but diarrhea now resolved, c. diff never sent. Abd u/s 01/09 unrevealing. -Differential includes GI infection as well as new inflammatory bowel disease or something like endometriosis of bowel as a/w menses this episode. -continue bowel rest and IV fluid rehydration, PRN IV fentanyl -given we haven't been able to progress diet with conservative care, will consult surgery, consider repeating CT or colonoscopy (2) Epigastric abdominal pain: Start date: 01/09/24 Status: Acute Assessment and plan: -as noted above, now evolving to left side. No urinary symptoms. She is on a PPI. (3) Hypokalemia: Start date: 01/09/24 Status: Acute Assessment and plan: -Most likely from GI loss/poor intake -continue to follow and replete, mg as well (4) Depression: Status: Chronic Assessment and plan: -Coping fairly well with her acute situation. Continue outpatient medical therapy. Qualifiers: Depression Type: persistent depressive disorder Qualified Code(s): F34.1 - Dysthymic disorder Subjective Subjective Patient reports: voiding w/o difficulty; denies bowel movement, vomiting, shortness of breath or fever Interval history since last seen: Was feeling better, hungry, so had clears this morning (broth, popsicle, black coffee) and had increased pain in epigastrum to LUQ. Pain continues to be sharp and colicy, coming in waves of more severe pain. She hasn't had any BMs since diarrhea stopped 2 days ago. Some nausea but no vomiting. Pain treated with IV fentanyl, which had helped in the ED. This afternoon, had another recurrence of pain after fluids at lunch. This time pain went to LLQ. Exam Narrative Exam Narrative: well appearing female laying in bed in no acute distress, AOx4. HEENT with no icterus, MMM, neck supple without LAD. Heart RRR w/o murmur. Lungs CTAB with normal effort. Abdomen soft, mildly distended, with mild to moderate tenderness to palpation in epigastrum to LUQ. No masses, no rebound or guarding Objective Last Vital Signs Temp 36.1 C L 01/11/24 14:46 Pulse 67 01/11/24 14:46 Resp 16 01/11/24 14:46 BP 124/97 H 01/11/24 14:46 Pulse Ox 98 01/11/24 14:46 Laboratory Results - last 24 hr 01/11/24 06:45 WBC 4.05 L RBC 3.73 L Hgb 11.5 Hct 34.4 L MCV 92 MCH 30.8 MCHC 33.4 RDW 12.9 Plt Count 251 MPV 9.8 Sodium 145 Potassium 3.2 L Chloride 110 H Carbon Dioxide 25.9 Anion Gap 9.1 BUN 1 L Creatinine 0.5 L Est GFR (CKD-EPI 2020) 117.07 Glucose 91 Calcium 8.1 L Time Spent with Patient Time Spent with Patient: 35-49 minutes Time was spent: preparing to see the patient(eg.review tests), obtaining and/or reviewing separately otained hiistory, ordering medications,tests, procedures, referring, communicating with other health customer care assistant, indepentently interpreting results, counseling the patient and care coordination
[2024-01-11 19:31] VITALS: BP 126/92; PULSE 69; TEMP 36.3; O2SAT 96
[2024-01-11] MEDS: Pantoprazole 40 MG VIAL IVP (20:47)
[2024-01-11] MEDS: Docusate Sodium 100 MG CAP PO (20:48)
[2024-01-11] MEDS: QUEtiapine 100 MG TAB 200 MG PO (22:08)
[2024-01-11] MEDS: Escitalopram 10 MG TAB 30 MG PO (22:08)
[2024-01-12 00:10] VITALS: BP 106/70; PULSE 74; RESP 18; TEMP 36.2; O2SAT 96
[2024-01-12 04:28] VITALS: BP 100/69; PULSE 70; RESP 18; TEMP 36.5; O2SAT 97
[2024-01-12] MEDS: Heparin 5,000 UNITS/ML VIAL 5000 UNITS SC ×2 (05:31→16:41)
[2024-01-12] MEDS: Normal Saline 1,000 ML 125 ML IV (05:33)
[2024-01-12 06:24] LABS: C-Reactive Protein 0.84 mg/dL (<or=0.5); Lipase 27 U/L (16-77)
[2024-01-12 06:32] LABS: Anion Gap 5.9 mmol/L (3-11); BUN 1 mg/dL (7-18); CO2 26.1 mmol/L (21.0-32.0); CREATININE 0.5 mg/dL (0.55-1.02); Calcium 7.9 mg/dL (8.5-10.1); Chloride 110 mmol/L (98-107); Estimated GFR 117.07 (mL/min/1.73m2); Glucose 86 mg/dL (74-106); Sodium 142 mmol/L (136-145)
[2024-01-12 07:40] VITALS: BP 117/85; PULSE 68; RESP 16; TEMP 36.4; O2SAT 96
[2024-01-12] MEDS: Normal Saline Flush 10 ML SYR IVP ×2 (08:39→17:11)
--- NOTE | 2024-01-12 08:41 | PDOC.CMPRO ---
Date of service: 01/12/24 Time of Service: 08:41 Care Management Progress Note Progress Note Text Progress Note Text: Shandra was sitting up in bed when CM met with her. She appeared to be in good spirits and was pleasant in interaction. Shandra stated that she is feeling much better. She is able to tolerate water and some liquids but still has discomfort with solid food. She was seen by the surgeon today and was told she may be able to go home later today. She is scheduled to have an abdominal xray this afternoon. If there are no findings of concern, she can be discharged as long as she is able to stay hydrated. Discharge Potential Discharge Needs: PCP F/U Appt Anticipated Barriers to Discharge: Medical Status Patient/Family Education Needs: Review discharge instructions, discuss Ask Me Three Transportation: Private vehicle Plan: Anticipate Shandra will discharge home with no new services when medically cleared. She will follow up with her PCP and plan of care and transport with family. CM will follow and continue to support discharge needs. SDOH(Care Management) Screening Will the Patient Participate in the Screening?: Yes Do you worry about having a steady place to live?: no Problems where you live: no known problems In the past 12 months, have you had to go without electric, gas, oil or water in your home?: no Have you or anyone in your house had to go without enough food to eat?: no Has lack of transportation kept you from medical appointments or from doing things needed for daily living?: no Has anyone in your support network made you feel unsafe for any reason?: no
[2024-01-12] MEDS: Acetaminophen 325 MG TAB PO ×2 (08:45→16:37)
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
[2024-01-12 10:57] VITALS: BP 121/84; PULSE 70; RESP 16; TEMP 36.2; O2SAT 98
--- NOTE | 2024-01-12 11:45 | PHA.REVIEW2 ---
Pharmacy Admission Review Admission Clinical Review Admission Pharmacy Review: Hypokalemia (Acute) Gastroenteritis (Acute) Acute left flank pain (Acute) Epigastric abdominal pain (Acute) aspirin Allergy (Severe, Unverified 10/05/22 13:42) Anaphylaxis lamotrigine [From Lamictal] Allergy (Severe, Unverified 10/05/22 13:42) Other (See Comment) Resuscitation Status Full Code Height 5 ft 9 in Weight 89.5 kg Comments Comments/Follow Ups: Watch VS, K+, labs and for med changes (IV to PO). Pharmacy Admission Review Renal Dosing Renal Dosing: BUN 1 mg/dL (7-18) L 01/12/24 05:40 Creatinine 0.5 mg/dL (0.55-1.02) L 01/12/24 05:40 Medications needing adjustments: Reviewed (Crcl ~167 mL/min current meds okay) Anticoagulation Anticoagulation: Hgb 11.5 g/dL (11.2-15.7) 01/11/24 06:45 Hct 34.4 % (36.0-46.0) L 01/11/24 06:45 Plt Count 251 10^3/uL (130-400) 01/11/24 06:45 INR 1.0 (0.9-1.1) 01/09/24 06:05 Creatinine 0.5 mg/dL (0.55-1.02) L 01/12/24 05:40 DVT Prophylaxis: Reviewed Medications: Heparin Opiate Usage Evaluate Pain Scale/Pains Meds: Reviewed Scheduled Bowel Reg ordered if on Opiates?: No (has PRN meds ordered) Relevant Labs Relevant Labs: ESR 8 mm/hr (0-20) 01/09/24 15:01 Sodium 142 mmol/L (136-145) 01/12/24 05:40 Potassium 3.0 mmol/L (3.5-5.1) L 01/12/24 05:40 Chloride 110 mmol/L (98-107) H 01/12/24 05:40 Magnesium 2.0 mg/dL (1.8-2.4) 01/12/24 05:40 C-Reactive Protein 0.84 mg/dL (<or=0.5) H 01/12/24 05:40 Electrolytes, C-Reactive P, ESR: Reviewed (IV K+ ordered) DM Control DM Control: N/A Cardiac Review Cardiac Review: Troponin I < 50 ng/L (< or =60) 01/09/24 16:03 BP, HR, EF%: Reviewed QTc Review QTc: Reviewed (QTC 423 on admission) IV to PO Switch IV Medications: Reviewed Home Meds Home Med List reviewed: Reviewed Relevent Home Meds Not ordered & why?: cyclobenzaprine (PRN), ibuprofen (PRN/has ketorolac ordered) Current Meds Current Medication Order Review: Reviewed Pharmacy Antibiotic Review Relevant Labs: Relevant Labs 01/12/24 05:40 C-Reactive Protein 0.84 H Comments Comments/Follow Ups: Watch VS, K+, labs and for med changes (IV to PO).
[2024-01-12] MEDS: POTASSIUM CHLORIDE 20 MEQ/100 ML BAG 50 MEQ IVINF ×2 (11:59→16:32)
--- NOTE | 2024-01-12 13:59 | CHAPLAIN ---
Shandra was sitting up in bed when I visited. She had just met with Therapeutic Dietitian Usha Welsh. Shandra said she'll likely have more testing done to compare results. Her mom and nine year old daughter visited yesterday and Shandra said that helped to lift her spirits. She also has two younger daughters at home. Her fiance is with them. She's not sure if it would be helpful for them to visit her or not. We talked about the possibility of Facetime using an iPad.
--- NOTE | 2024-01-12 14:42 | DI.RAD_ITS ---
Exam(s) XR ABDOMEN FLAT UPRIGHT EXAM: XR ABDOMEN FLAT UPRIGHT CLINICAL HISTORY: rule out SBO. TECHNIQUE: 2D digital imaging was performed. COMPARISON: CT CT ABDOMEN PELVIS W from 01/09/2024 FINDINGS: Two views-AP supine and upright There is no evidence of bowel obstruction nor free intraperitoneal air. No abnormal calcification of the kidneys in course of the ureters. Regional bones unremarkable. IMPRESSION: Nonspecific bowel gas pattern. No evidence of bowel obstruction or free intraperitoneal air. DATA REPOSITORY: RADIATION DOSE DELIVERED:
[2024-01-12 15:08] VITALS: BP 134/99; PULSE 69; RESP 15; TEMP 36.4; O2SAT 98
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
== END 2024-01-12 19:00 | disposition home or self-care (01) ==
LOC: ER 01-10 00:21 → MS 01-10 00:23
PROVIDERS: Family Medicine; Admitting Provider Family Medicine; Emergency Provider Emergency Medicine; PCP Family Medicine; Visit Provider Family Medicine
DX: K52.9 Noninfective gastroenteritis and colitis, unspecified (principal); E87.6 Hypokalemia; R10.13 Epigastric pain; F34.1 Dysthymic disorder; K82.4 Cholesterolosis of gallbladder; R10.32 Left lower quadrant pain; E04.1 Nontoxic single thyroid nodule; D25.9 Leiomyoma of uterus, unspecified; F11.21 Opioid dependence, in remission; N28.1 Cyst of kidney, acquired
CPT/HCPCS: 00123; 36415; 80048; 80076; 83690; 85027; 85652; 86850; 86900; 86901; 93005; 96361; 96372; 96374; 96375; 96376; 99285; 71045; 74019; 74177; 76705; 81003; 81015; 83605; 83735; 84439; 84443; 84484; 84703; 85014; 85018; 85025; 85379; 85610; 86140; 93010; 99223; 99232; 99233; 99238; G0378; J1170; J1644; J1885; J2405; J2470; J3010; J3480; J3490

== ENCOUNTER 2024-02-06 13:18 | Emergency (ER) | payer MEDICAID, SELFPAY ==
--- NOTE | 2024-02-06 13:15 | RT.EKG_ITS ---
APPROVED REPORT Exam: Resting ECG Reason for Exam: dizziness Patient Location: E HR:86 bpm ECG Measurements Heart Rate 86 AXIS MA 168 P 2 QRSd 95 QRS 34 QT 359 T 250 QTc 429 Conclusion Sinus rhythm...normal P axis, V-rate 60- 99 Nonspecific T abnormalities, diffuse leads...T <-0.10mV, ant/lat/inf
[2024-02-06 13:21] VITALS: BP 156/103; PULSE 75; RESP 18; TEMP 36.4; O2SAT 100
[2024-02-06 13:25] VITALS: RESP 18
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
[2024-02-06] MEDS: Meclizine 25 MG TAB PO (14:44)
[2024-02-06] MEDS: Ondansetron 4 MG/2 ML VIAL IVP (14:44)
[2024-02-06] MEDS: Normal Saline 1,000 ML 1000 ML IV (14:44)
[2024-02-06 14:47] LABS: Abs Immature Grans 0.01 10^3/uL (0.0-0.06); Absolute Basophil Count 0.02 10^3/uL (0.0-0.2); Absolute Eosinophil Count 0.09 10^3/uL (0.0-0.7); Absolute Lymphocyte Count 1.83 10^3/uL (1.2-3.4); Absolute Monocyte Count 0.19 10^3/uL (0.1-0.8); Absolute Neutrophil Count 2.54 10^3/uL (1.2-6.7); Basophils % 0.4 %; Eosinophils % 1.9 %; HCT 39.5 % (36.0-46.0); HGB 13.4 g/dL (11.2-15.7); Immature Grans % 0.2 %; Lymphocytes % 39.1 %; MCH 30.8 pg (27.0-33.0); MCHC 33.9 % (32.0-36.0); MCV 91 fL (80-95); Monocytes % 4.1 %; Neutrophils % 54.3 %; Platelet Count 309 10^3/uL (130-400); RBC 4.35 10^6/uL (3.93-5.22); RDW 12.6 % (11.7-14.6); RDW-SD 41.5 fL; WBC 4.68 10^3/uL (4.4-10.8)
[2024-02-06 14:48] LABS: Bilirubin Negative (Negative); Blood Trace-lysed (Negative); Clarity Clear (Clear); Glucose Negative (Negative); Ketones Negative (Negative); Leukocyte Esterase Negative (Negative); Nitrite Negative (Negative); Urobilinogen 0.2 mg/dL (Up to 0.2); pH 6.5 (5-8)
[2024-02-06 14:54] LABS: Bacteria Negative HPF (Negative); C & S Indicated? No; Casts Negative LPF (Negative); Crystals Negative HPF (Negative); Epithelial Cells Rare HPF (Negative); Mucus Negative (Negative); RBC 0-2 HPF (0-2); WBC Negative HPF (0-5)
[2024-02-06 14:59] VITALS: BP 119/85; PULSE 68; RESP 15; TEMP 36.6; O2SAT 98
--- NOTE | 2024-02-06 15:12 | DI.CT_ITS ---
Exam(s) CT HEAD WO EXAM: CT HEAD WO CLINICAL HISTORY: Dizziness. TECHNIQUE: Imaging Protocol: Axial computed tomography images with coronal and sagittal reformatted images were created and reviewed COMPARISON: No exams were available for comparison FINDINGS: Ventricles and Extra axial spaces: Normal in size and morphology for the patient's age. Hemorrhage: None. Cerebral parenchyma: No evidence of acute infarct or mass. Midline shift: None. Brainstem/Cerebellum: Normal. Calvarium: Normal. Visualized Paranasal sinuses:Clear. Mastoids: Clear. Soft Tissues: Unremarkable. ORBITS: Unremarkable. PITUITARY: Not enlarged. IMPRESSION: No acute intracranial process. RADIATION DOSE DELIVERED: Total DLP DATA REPOSITORY: All CT scans at this facility are submitted to the National Radiology Data Registry (NRDR) Dose Index Registry (DIR) with the [employer] (ACR). RADIATION OPTIMIZATION: All CT scans at this facility use at least one of these dose optimization te chniques: automated exposure control; mA and/or kV adjustment per patient size (includes targeted exa ms where dose is matched to clinical indication); or iterative reconstruction.
[2024-02-06 15:15] LABS: ALT 8 U/L (14-59); AST 7 U/L (15-37); Albumin 4.4 g/dL (3.4-5.0); Alkaline Phosphatase 62 U/L (46-116); Anion Gap 12.7 mmol/L (3-11); BUN 4 mg/dL (7-18); Bilirubin, Total 0.29 mg/dL (0.2-1.0); CO2 24.3 mmol/L (21.0-32.0); CREATININE 0.5 mg/dL (0.55-1.02); Calcium 9.4 mg/dL (8.5-10.1); Chloride 107 mmol/L (98-107); Estimated GFR 117.07 (mL/min/1.73m2); Glucose 96 mg/dL (74-106); Magnesium 2.3 mg/dL (1.8-2.4); Potassium 3.3 mmol/L (3.5-5.1); Sodium 144 mmol/L (136-145); TSH 2.46 uIU/Ml (0.36-3.74); Total Protein 7.3 g/dL (6.4-8.2); Troponin I < 50 ng/L (< or =60)
[2024-02-06] MEDS: Potassium Chloride Liquid 20 MEQ PKT 40 MEQ PO (15:37)
[2024-02-06] MEDS: Dexamethasone 10 MG/ML VIAL IVP (15:45)
[2024-02-06] MEDS: LORazepam 2 MG/ML VIAL 0.5 MG IVP (15:45)
--- NOTE | 2024-02-06 15:45 | DI.MRI_ITS ---
Exam(s) MR BRAIN WO EXAM: MR BRAIN WO CLINICAL HISTORY: dizziness, concern for central cause TECHNIQUE: Multiplanar multisequence MRI of the brain was performed. COMPARISON: CT CT HEAD WO from 02/06/2024 FINDINGS: VENTRICLES AND EXTRA AXIAL SPACES: Normal in size and morphology for the patient's age. MIDLINE SHIFT: None. CEREBRAL PARENCHYMA: No focus of restricted diffusion to suggest acute infarct. No space-occupying le nickie identified. There is a solitary focus of hyperintense signal on the FLAIR images adjacent to the anterior horn the right lateral ventricle. This is nonspecific. This may represent early small ves joselyn ischemic disease. HEMORRHAGE: There is an area of decreased attenuation at the junction of the left frontal and parieta l lobes adjacent to the anterior horn of the left lateral ventricle. It has a blooming artifact. Th e findings may be seen with a vascular malformation. Diffusion-weighted images show no evidence of a n acute infarct. No other lesions are seen. Prior trauma or cerebral amyloid may also have this kb earance. BRAINSTEM/CEREBELLUM: Normal. CALVARIUM: Normal. VISUALIZED PARANASAL SINUSES/MASTOIDS:Clear. [place] SOTO: Normal flow void. PITUITARY GLAND: Unremarkable. OTHER FINDINGS: None. IMPRESSION: 1. No evidence of an acute territorial infarct. 2. ???Black dot??? adjacent to the anterior horn of the left lateral ventricle. This may represent a vascular malformation. Other considerations include remote remote trauma or cerebral amyloid. 3. There is a solitary focus of hyperintense signal on the FLAIR images adjacent to the anterior horn of the right lateral ventricle which may represent early small vessel ischemic disease. This is non specific. 4. Findings were discussed with Dr. Donna Lundberg at 5:19 p.m. on 02/06/2024. DATA REPOSITORY:
--- NOTE | 2024-02-06 16:05 | ED.PROG_ITS ---
Date of service: 02/06/24 Time of Service: 16:00 Medical Decision Making Handoff report received from Radha Lomeli NP daytime YVON. Please see her note for full HPI/ROS/PE. Shandra is a 48-year-old female presented to the emergency department today for evaluation of dizziness. She reports that this started yesterday afternoon, initially occurred only when she turned her head, did not matter which direction. This progressed to being triggered by standing or any movement of her head or eyes, resolving after a brief period. This has been accompanied by nausea/vomiting (x 1). Otherwise feeling well. She did have URI sx a few weeks ago, no current symptoms; did have tinnitis in L ear a few days ago which has since resolved. A brief physical exam was performed, no corrective saccade able to be elicited on hints exam. No nystagmus able to be elicited. Normal gait, though pt does say she feels that she has to walk slowly. No facial droop, moving all extremities equally. Patient did have a CT which was unremarkable, as well as reassuring blood work. She did receive a dose of meclizine, which she says helps with the dizziness with eye movement, but it is still present when she turns her head. As she does have abnormal findings on hints exam, MRI ordered to rule out central cause after discussion with attending physician Dr Jacome. MRI results reassuring, no acute findings. Incidental finding of black dot adjacent to the anterior horn of the left lateral ventricle. Discussed findings with Shandra, recommend follow-up with ENT for further evaluation, as she reports that the meclizine has helped with the dizziness associated with moving her eyes, but she continues to have a whooshing dizziness when turning her head. Overall workup today very reassuring, unclear etiology of dizziness, possible BPPV, though other vestibular cause also likely. She does believe this is tolerable with meclizine. Reviewed discharge instructions. Advise follow-up with ENT, also reviewed red flags indicate need for return to emergency care. She is agreeable to plan of care. Imaging Data Radiologic Study: Radiologist's impression: Exam(s) MR BRAIN WO EXAM: MR BRAIN WO CLINICAL HISTORY: dizziness, concern for central cause TECHNIQUE: Multiplanar multisequence MRI of the brain was performed. COMPARISON: CT CT HEAD WO from 02/06/2024 FINDINGS: VENTRICLES AND EXTRA AXIAL SPACES: Normal in size and morphology for the patient's age. MIDLINE SHIFT: None. CEREBRAL PARENCHYMA: No focus of restricted diffusion to suggest acute infarct. No space-occupying lesion identified. There is a solitary focus of hyperintense signal on the FLAIR images adjacent to the anterior horn the right lateral ventricle. This is nonspecific. This may represent early small vessel ischemic disease. HEMORRHA GE: There is an area of decreased attenuation at the junction of the left frontal and parietal lobes adjacent to the anterior horn of the left lateral ventricle. It has a blooming artifact. The findings may be seen with a vascular malformation. Diffusion-weighted images show no evidence of an acute infarct. No other lesions are seen. Prior trauma or cerebral amyloid may also have this appearance. BRAINSTEM/CEREBELLUM: Normal. CALVARIUM: Normal. VISUALIZED PARANASAL SINUSES/MASTOIDS:Clear. [place]: Normal flow void. PITUITARY GLAND: Unremarkable. OTHER FINDINGS: None. IMPRESSION: 1. No evidence of an acute territorial infarct. 2. ?Black dot? adjacent to the anterior horn of the left lateral ventricle. This may represent a vascular malformation. Other considerations include remote remote trauma or cerebral amyloid. 3. There is a solitary focus of hyperintense signal on the FLAIR images adjacent to the anterior horn of the right lateral ventricle which may represent early small vessel ischemic disease. This is nonspecific. Quality:SDOH Health Related Social Needs: No Data to Display Sign Out Sign Out Data: Sign Out Comment: Here with Vertigo and dizziness which worsened today. No LANG, d escribes as room spinning. A&Ox4, no change after meclizine, fluids, given dexamethasone, and Lorazepam here. Pending re-evaluation and disposition. Last updated by Radha Lomeli NP at 02/06/24 15:39 Discharge Plan Disposition Patient Disposition: Home Condition: Stable Discharge Details Clinical Impression: Dizziness, Elevated blood pressure reading Primary Care Provider: Makeda Dubois ED Provider: Shea Mcgrath Home Meds and New Rx's Prescriptions: New meclizine 25 mg tablet 25 mg PO BID PRNQty: 15 0RF Continued ibuprofen 600 mg tablet 600 mg PO Q6H PRN (Reason: pain) Qty: 60 0RF escitalopram oxalate [Lexapro] 10 mg Tablet 30 mg PO QDAY cyclobenzaprine 10 mg tablet 10 mg PO TID PRNQty: 10 0RF acetaminophen 325 mg Tablet 325 - 650 mg PO Q4H PRN PRNQty: 0 0RF quetiapine 100 mg Tablet 200 mg PO HS Qty: 0 0RF Rx Instructions: this was a home medication Discharge Instructions Instructions: Vertigo (a type of dizziness) Additional Instructions: A referral to [facility] ENT has also been made for further evaluation into possible inner ear causes of dizziness. Your blood pressure was elevated today. Please call your primary care provider to schedule a follow-up appointment. You may use the meclizine prescribed as needed for dizziness. Please be sure to get plenty of sleep, drink adequate fluids, and eat regular meals. Return to emergency care if you develop new symptoms such as difficulty walking, confusion, uncontrollable vomiting, weakness, vision change, headache associated with dizziness, or if you are very worried and need to be rechecked again immediately Referrals: Makeda Dubois [Primary Care Provider] -
[2024-02-06 16:54] VITALS: BP 141/99; PULSE 86; RESP 16; O2SAT 98
[2024-02-06 17:17] LABS: Troponin I < 50 ng/L (< or =60)
[2024-02-06 18:03] VITALS: BP 144/88; PULSE 81; RESP 16; O2SAT 100
== END 2024-02-06 18:28 | disposition home or self-care (01) ==
PROVIDERS: Registered Nurse Emergency; Emergency Provider Nurse Practitioner Family; PCP Family Medicine
DX: R42 Dizziness and giddiness (principal); R03.0 Elevated blood-pressure reading, without diagnosis of hypertension
CPT/HCPCS: 00123; 36415; 80053; 93005; 96361; 96374; 96375; 99284; 70450; 70551; 81003; 81015; 83735; 84443; 84484; 85025; 93010; 99283; J1100; J2060; J2405

== ENCOUNTER 2024-02-10 14:16 | Emergency (ER) | payer MEDICAID, SELFPAY ==
--- NOTE | 2024-02-10 14:15 | RT.EKG_ITS ---
APPROVED REPORT Exam: Resting ECG Reason for Exam: dizziness Patient Location: E HR:93 bpm ECG Measurements Heart Rate 93 AXIS AL 143 P -28 QRSd 91 QRS 46 QT 346 T -79 QTc 431 Conclusion Sinus rhythm...V -rate 60- [address] segment or T wave abnormalities to suggest occlusive IL
[2024-02-10 14:18] VITALS: BP 140/98; PULSE 94; RESP 14; TEMP 36.7; O2SAT 98
--- NOTE | 2024-02-10 14:45 | DI.CT_ITS ---
Exam(s) CT BRAIN NECK CTA EXAM: CT BRAIN NECK CTA CLINICAL HISTORY: headache, vertigo, left arm weakness. TECHNIQUE: Imaging Protocol: Axial CT angiography was performed with multi-slice acquisition and mu lti-planar and MIP reconstructions. CONTRAST MATERIAL: Intravenous: Omnipaque 350 Contrast volume:85 ml COMPARISON: MR MR BRAIN WO from 02/06/[address] HEAD WO from 02/06/2024 FINDINGS: CT Head W/O and W contrast: Ventricles and Extra axial spaces: Normal in size and morphology for the patient's age. Hemorrhage: None. Cerebral parenchyma: No evidence of acute infarct or mass. Midline shift: None. Brainstem/Cerebellum: No acute findings.. Calvarium: Normal. Visualized Paranasal sinuses/Mastoids: Clear. Soft Tissues: Unremarkable. Enhancement: Tiny high signal focus adjacent to the frontal horn of the left lateral ventricle, seen on prior MRI to represent blooming artifact on susceptibility weighted images consistent with hemosid jose alejandro. The findings may represent a small venous malformation. CTA Brain W: Internal Carotid Arteries: Petrous: Normal. Cavernous: Normal. Cerebral: Normal. Middle Cerebral Arteries: Right: No aneurysm, occlusion or significant stenosis. Left: No aneurysm, occlusion or significant stenosis. Anterior Cerebral Arteries: Right: No aneurysm, occlusion or significant stenosis. Left: No aneurysm, occlusion or significant stenosis. Posterior cerebral Arteries: Right: No aneurysm, occlusion or significant stenosis. Left: No aneurysm, occlusion or significant stenosis. Vertebral Arteries: Right: No aneurysm, occlusion or significant stenosis. Left: No aneurysm, occlusion or significant stenosis. Basilar Artery: No aneurysm, occlusion or significant stenosis. CTA Neck W: Common Carotid: Right: No dissection, occlusion or significant stenosis. Left: No dissection, occlusion or significant stenosis. External Carotid: Right: No dissection, occlusion or significant stenosis. Left: No dissection, occlusion or significant stenosis. Internal Carotid: Right: No dissection, occlusion or significant stenosis. Left: No dissection, occlusion or significant stenosis. Vertebral Artery: Right: No dissection, occlusion or significant stenosis. Left: No dissection, occlusion or significant stenosis. Lung Apices: No acute findings. Bones: No acute abnormality. Degenerative changes in the cervical spine. Soft Tissues: Absent left lobe of the thyroid. IMPRESSION: 1. CTA brain: Normal CTA examination of the [place]. 2. Head CT: Small focus of increased attenuation adjacent to the frontal horn of the left lateral susan tricle architectural representative 4 small focus of hemosiderin which may represent a small venous malformation. 3. CTA neck: Normal CTA examination of the neck. RADIATION DOSE DELIVERED: Total DLP DATA REPOSITORY: All CT scans at this facility are submitted to the National Radiology Data Registry (NRDR) Dose Index Registry (DIR) with the [employer] (ACR). RADIATION OPTIMIZATION: All CT scans at this facility use at least one of these dose optimization te chniques: automated exposure control; mA and/or kV adjustment per patient size (includes targeted exa ms where dose is matched to clinical indication); or iterative reconstruction.
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
[2024-02-10 15:08] LABS: Abs Immature Grans 0.01 10^3/uL (0.0-0.06); Absolute Basophil Count 0.02 10^3/uL (0.0-0.2); Absolute Eosinophil Count 0.12 10^3/uL (0.0-0.7); Absolute Lymphocyte Count 2.34 10^3/uL (1.2-3.4); Absolute Monocyte Count 0.27 10^3/uL (0.1-0.8); Absolute Neutrophil Count 2.76 10^3/uL (1.2-6.7); Basophils % 0.4 %; Eosinophils % 2.2 %; HCT 37.2 % (36.0-46.0); HGB 12.6 g/dL (11.2-15.7); Immature Grans % 0.2 %; Lymphocytes % 42.4 %; MCH 30.4 pg (27.0-33.0); MCHC 33.9 % (32.0-36.0); MCV 90 fL (80-95); MPV 9.8 fL (8.0-11.0); Monocytes % 4.9 %; Neutrophils % 49.9 %; Platelet Count 310 10^3/uL (130-400); RBC 4.14 10^6/uL (3.93-5.22); RDW 12.5 % (11.7-14.6); RDW-SD 40.9 fL; WBC 5.52 10^3/uL (4.4-10.8)
[2024-02-10 15:11] LABS: ESR 5 mm/hr (0-20)
[2024-02-10] MEDS: Normal Saline 1,000 ML 1000 ML IV (15:23)
[2024-02-10] MEDS: diphenhydrAMINE 50 MG/ML VIAL 25 MG IVP (15:24)
[2024-02-10] MEDS: ACETAMINOPHEN 1,000 MG/100 ML BTL 400 MG IVPB (15:24)
[2024-02-10] MEDS: Ketorolac 15 MG/ML VIAL IVP (15:24)
[2024-02-10] MEDS: Normal Saline 50 ML (15:25)
[2024-02-10] MEDS: Prochlorperazine 10 MG/2 ML VIAL IVP (15:25)
[2024-02-10 15:27] LABS: Troponin I < 50 ng/L (< or =60)
[2024-02-10 15:34] LABS: ALT 16 U/L (14-59); AST 9 U/L (15-37); Albumin 3.8 g/dL (3.4-5.0); Alkaline Phosphatase 71 U/L (46-116); Anion Gap 6.6 mmol/L (3-11); BUN 10 mg/dL (7-18); CO2 29.4 mmol/L (21.0-32.0); CREATININE 0.7 mg/dL (0.55-1.02); Calcium 9.2 mg/dL (8.5-10.1); Chloride 107 mmol/L (98-107); Estimated GFR 107.95 (mL/min/1.73m2); Glucose 94 mg/dL (74-106); Potassium 3.4 mmol/L (3.5-5.1); Sodium 143 mmol/L (136-145); TSH (W/Ref FT4) 3.68 uIU/mL (0.36-3.74)
[2024-02-10 15:35] LABS: C-Reactive Protein < 0.50 mg/dL (<or=0.5)
[2024-02-10 15:52] LABS: HCG Quant, Pregnancy < 1 mIU/mL (1-3)
[2024-02-10 15:56] VITALS: RESP 16
[2024-02-10] MEDS: Omnipaque 350 MG/ML 100 ML BTL IJ (16:11)
[2024-02-10] MEDS: Potassium Chloride Liquid 20 MEQ PKT PO (16:13)
[2024-02-10 16:42] VITALS: BP 145/87; PULSE 77; RESP 18; O2SAT 100
--- NOTE | 2024-02-10 17:02 | DI.VRAD_ITS ---
PROCEDURE INFORMATION: Exam: CTA Head Without And With Contrast, Arteriography Exam date and time: 02/10/2024 4:00 PM Age: 48 years old Clinical indication: Other: Headache, vertigo, lt arm weakness TECHNIQUE: Imaging protocol: Computed tomographic angiography of the head without and with contrast. Exam focused on the arteries. 3D rendering (Not supervised by radiologist): MIP and/or 3D reconstructed images were created by the technologist. Radiation optimization: All CT scans at this facility use at least one of these dose optimization techniques: automated exposure control; mA and/or kV adjustment per patient size (includes targeted exams where dose is matched to clinical indication); or iterative reconstruction. Contrast material: OMNIPAQUE 350; Contrast volume: 85 ml; Contrast route: INTRAVENOUS (IV); COMPARISON: MR BRAIN WO 02/06/2024 4:20 PM FINDINGS: ANTERIOR CIRCULATION: Right internal carotid artery: Intracranial segment is patent with no significant stenosis or occlusion. No aneurysm. Ophthalmic artery identified Right middle cerebral artery: No occlusion or significant stenosis. No aneurysm. Right anterior cerebral artery: No occlusion or significant stenosis. No aneurysm. Left internal carotid artery: Intracranial segment is patent with no significant stenosis. No aneurysm. Left ICA is slightly larger which may be congenital as there is a dominant left A1 segment. Left middle cerebral artery: No occlusion or significant stenosis. No aneurysm. Left anterior cerebral artery: No occlusion or significant stenosis. No aneurysm. POSTERIOR CIRCULATION: Right vertebral artery: No occlusion or significant stenosis. No aneurysm. Prominent right PICA visualized. Left vertebral artery: No occlusion or significant stenosis. No aneurysm. Basilar artery: No occlusion or significant stenosis. No aneurysm. Superior cerebellar artery origins identified. Right posterior cerebral artery: No occlusion or significant stenosis. No aneurysm. Left posterior cerebral artery: No occlusion or significant stenosis. No aneurysm. No findings to suggest acute dural sinus thrombosis. HEAD: Brain: Ventricles, sulci are unchanged when compared with the patient's prior exam. There is a hyperdensity noted in the left frontal lobe adjacent to the frontal horn of the left lateral ventricle which was also previously identified. There is no surrounding edema. It does not demonstrate significant enhancement on the postcontrast images. It likely represents an incidental cavernous malformation. There is no new hemorrhage. There is no shift or herniation. There is no evidence of an acute cortical or major vascular territory infarct.. No abnormal enhancement is identified. Cerebral ventricles: No significant ventricular enlargement/hydrocephalus.. Bones: Unremarkable. No acute fracture. Paranasal sinuses: No significant opacification or fluid level. Mastoid air cells: No significant mastoid opacification Soft tissues: Unremarkable. IMPRESSION: 1. No significant intracranial vascular stenosis or large vessel occlusion.. 2. Persistent hyperdensity adjacent to the frontal horn of the left lateral ventricle also seen on the patient's prior CT, MRI likely incidental cavernous malformation.. PROCEDURE INFORMATION: Exam: CTA Neck Without And With Contrast Exam date and time: 02/10/2024 4:00 PM Age: 48 years old Clinical indication: Other: Headache, vertigo, lt arm weakness TECHNIQUE: Imaging protocol: Computed tomographic angiography of the neck without and with contrast. Exam focused on the cervical segments of the vasculature. 3D rendering (Not supervised by radiologist): MIP and/or 3D reconstructed images were created by the technologist. Radiation optimization: All CT scans at this facility use at least one of these dose optimization techniques: automated exposure control; mA and/or kV adjustment per patient size (includes targeted exams where dose is matched to clinical indication); or iterative reconstruction. Contrast material: OMNIPAQUE 350; Contrast volume: 85 ml; Contrast route: INTRAVENOUS (IV); COMPARISON: MR BRAIN WO 02/06/2024 4:20 PM FINDINGS: CT angiography of the aortic arch demonstrates the great vessel origins are patent. Flow is seen distally in the subclavian arteries. Right common carotid artery: No stenosis. No dissection or occlusion. Right internal carotid artery: No stenosis of the extracranial segment. No dissection or occlusion. Right external carotid artery: No occlusion or stenosis of the origin. Left common carotid artery: No stenosis. No dissection or occlusion. Left internal carotid artery: No stenosis of the extracranial segment. No dissection or occlusion. Left external carotid artery: No occlusion or stenosis of the origin. Right vertebral artery: No stenosis. No dissection or occlusion. Left vertebral artery: No stenosis. No dissection or occlusion. Left vertebral artery is dominant. Soft tissues: Left lobe of the thyroid gland is hypoplastic or absent. There is no evidence of a discrete soft tissue mass in the neck. No significant consolidation is identified at the lung apices. Bones/joints: There are findings consistent with cervical spondylosis, degenerative disc disease. There is minimal anterolisthesis of C4 with respect to C5. There is no acute bony abnormality. IMPRESSION: No significant extracranial vascular abnormality. REFERENCES: NASCET CRITERIA. The degree of stenosis in the cervical segment of the internal carotid artery is based on NASCET criteria. Normal is no stenosis. Mild is less than 50% stenosis. Moderate is 50-69% stenosis. Severe is 70% to 99% stenosis. Total occlusion is no detectable patent lumen. Dictated and Authenticated by: Nadia Sewell MD. Ordering:SHA Street MD
[2024-02-10 18:15] VITALS: BP 137/92; PULSE 85; RESP 18; O2SAT 97
[2024-02-10 18:28] VITALS: BP 137/92; PULSE 76; RESP 15; O2SAT 97
== END 2024-02-10 18:29 | disposition home or self-care (01) ==
PROVIDERS: Emergency Provider Student in an Organized Health Care Education/Training Program; PCP Family Medicine
DX: G43.109 Migraine with aura, not intractable, without status migrainosus (principal); Z87.891 Personal history of nicotine dependence
CPT/HCPCS: 36415; 70496; 70498; 80053; 81025; 85652; 93005; 96361; 96374; 96375; 99285; 84443; 84484; 84702; 85025; 86140; 93010; J0131; J0780; J1200; J1885; J3490

== ENCOUNTER 2024-06-20 09:23 | Emergency (ER) | payer MEDICAID, SELFPAY ==
[2024-06-20 09:26] VITALS: BP 162/101; PULSE 92; RESP 18; TEMP 36.5; O2SAT 98
[2024-06-20 09:41] LABS: Bilirubin Negative (Negative); Blood Negative (Negative); Clarity Sl Cloudy (Clear); Glucose Negative (Negative); Ketones Negative (Negative); Leukocyte Esterase Negative (Negative); Nitrite Negative (Negative); Specific Gravity 1.015 (1.005-1.025); Urobilinogen 0.2 mg/dL (Up to 0.2); pH 7.5 (5-8)
[2024-06-20 10:05] LABS: Abs Immature Grans 0.02 10^3/uL (0.0-0.06); Absolute Basophil Count 0.02 10^3/uL (0.0-0.2); Absolute Eosinophil Count 0.19 10^3/uL (0.0-0.7); Absolute Lymphocyte Count 1.87 10^3/uL (1.2-3.4); Absolute Monocyte Count 0.28 10^3/uL (0.1-0.8); Absolute Neutrophil Count 4.31 10^3/uL (1.2-6.7); Basophils % 0.3 %; Eosinophils % 2.8 %; HCT 35.3 % (36.0-46.0); HGB 11.8 g/dL (11.2-15.7); Immature Grans % 0.3 %; MCH 30.1 pg (27.0-33.0); MCHC 33.4 % (32.0-36.0); MCV 90 fL (80-95); MPV 10.1 fL (8.0-11.0); Monocytes % 4.2 %; Neutrophils % 64.4 %; Platelet Count 313 10^3/uL (130-400); RBC 3.92 10^6/uL (3.93-5.22); RDW 12.4 % (11.7-14.6); RDW-SD 40.9 fL; WBC 6.69 10^3/uL (4.4-10.8)
[2024-06-20] MEDS: ACETAMINOPHEN 650 MG/65 ML BAG 260 MG IVPB (10:15)
[2024-06-20 10:16] LABS: Lipase 46 U/L (<78)
[2024-06-20 10:21] VITALS: BP 123/97; PULSE 86; RESP 18; TEMP 36.7; O2SAT 96
[2024-06-20 10:21] LABS: ALT 13 U/L (14-59); AST 10 U/L (15-37); Albumin 3.9 g/dL (3.4-5.0); Alkaline Phosphatase 88 U/L (46-116); Anion Gap 9.6 mmol/L (3-11); BUN 7 mg/dL (7-18); Bilirubin, Total 0.36 mg/dL (0.2-1.0); CO2 25.4 mmol/L (21.0-32.0); CREATININE 0.6 mg/dL (0.55-1.02); Calcium 8.7 mg/dL (8.5-10.1); Chloride 105 mmol/L (98-107); Estimated GFR 111.34 (mL/min/1.73m2); Glucose 89 mg/dL (74-106); Potassium 3.5 mmol/L (3.5-5.1); Sodium 140 mmol/L (136-145); Total Protein 7.1 g/dL (6.4-8.2)
[2024-06-20 10:22] LABS: C-Reactive Protein < 0.50 mg/dL (<or=0.5)
--- NOTE | 2024-06-20 11:00 | DI.US_ITS ---
Exam(s) US RENAL EXAM: US RENAL CLINICAL HISTORY: RLQ and flank pain TECHNIQUE: Ultrasound of both kidneys performed using standard protocol. COMPARISON: US US PELVIS TRANSVAGINAL from 06/20/2024 FINDINGS: RIGHT KIDNEY: Measures 12.8 cm in length. No cysts evident. Normal cortical thickness and corticomedullary differen tiation .No solid masses No intrarenal calculi nor hydronephrosis. LEFT KIDNEY: Measures 12.1 cm in length. No cysts evident. Normal cortical thickness and corticomedullary differe ntiaion. No solids masses. No intrarenal calculi nor hydonephrosis. URINARY BLADDER: Prevoid volume is 57 cc Postvoid volume is cc No evidence of obvious bladder mass nor diverticuli. Ureterovesical jets: Both not identified. IMPRESSION: 1. No significant ultrasound findings in the kidneys. 2. Only 57 cc in the urinary bladder. No obvious bladder mass. No intravesicular calculi evident. DATA REPOSITORY:
[2024-06-20 11:29] VITALS: BP 128/93; PULSE 75; RESP 18; O2SAT 100
--- NOTE | 2024-06-20 11:30 | DI.US_ITS ---
Exam(s) US PELVIS TRANSVAGINAL EXAM: US PELVIS TRANSVAGINAL CLINICAL HISTORY: RLQ pain TECHNIQUE: Ultrasound of the pelvis was performed both transabdominal and transvaginal. COMPARISON: US US ABDOMEN LIMITED from 01/10/2024 FINDINGS: UTERUS: Nongravid and anteverted Measures 9.3 cm length x 5.3 cm AP x 6.7 cm wide. There appears to be a posterior myometrial fibroid measuring approximately 2.2 x 1.4 x 3.2 cm.A small er anterior fibroid is noted. Endometrial thickness measures 7-8 mm. There is a small amount of fluid in the endometrial canal. CERVIX: There are no obvious nabothian cysts. RIGHT OVARY: Measures 2.6 x 1.6 x 2.5. cm Contains small sub cm follicular cysts. LEFT OVARY: Measures 0.7 x 1.3 x 2.1 cm No significant cysts nor masses evident in the left ovary. CUL-DE-SAC: No free fluid evident. IMPRESSION: 1. Uterine fibroids as above. There is a small amount of fluid also noted in the endometrial cavity. 2. No abnormal ovarian findings. 3. However, there is small amount of free fluid in the right adnexa region noted. DATA REPOSITORY:
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
[2024-06-20] MEDS: Orphenadrine 60 MG/2 ML VIAL 30 MG IVP (12:34)
[2024-06-20] MEDS: Lidocaine 5% Patch 1 PATCH TP (12:35)
[2024-06-20 12:48] VITALS: BP 116/78; PULSE 80; RESP 18; O2SAT 100
== END 2024-06-20 13:07 | disposition home or self-care (01) ==
PROVIDERS: Emergency Provider Physician Assistant; PCP Family Medicine
DX: R10.32 Left lower quadrant pain (principal); D25.9 Leiomyoma of uterus, unspecified; N83.01 Follicular cyst of right ovary; Z87.891 Personal history of nicotine dependence
CPT/HCPCS: 36415; 76770; 80053; 81025; 83690; 96374; 96375; 99284; J2360; 76830; 76856; 81003; 85025; 86140; J0131